=== PATIENT | female | born 1940 | race Caucasian/White ===

== ENCOUNTER 2018-06-13 13:53 | Outpatient (REF) | payer OTHER, SELFPAY ==
[2018-06-13 15:22] LABS: Anion Gap 8.2 mmol/L (3-11); BUN 21 mg/dL (7-18); CO2 26.8 mmol/L (21.0-32.0); Calcium 8.8 mg/dL (8.5-10.1); Chloride 100 mmol/L (98-107); Estimated GFR 53.62 (mL/min/1.73m2); Glucose 139 mg/dL (70-100); Potassium 4.6 mmol/L (3.5-5.1); Sodium 135 mmol/L (136-145)
== END 2018-06-13 14:13 ==
LOC: NCHCN 13:53
PROVIDERS: Visit Provider Nurse Practitioner Family
DX: I10 Essential (primary) hypertension (principal)
CPT/HCPCS: 80048

== ENCOUNTER → 2018-09-11 11:21 | Outpatient (BNVA) | payer OTHER, SELFPAY | PROVIDERS: Visit Provider Internal Medicine Cardiovascular Disease | DX: I48.0 Paroxysmal atrial fibrillation (principal); Z79.01 Long term (current) use of anticoagulants; I08.3 Combined rheumatic disorders of mitral, aortic and tricuspid valves; I10 Essential (primary) hypertension; E78.5 Hyperlipidemia, unspecified; G47.30 Sleep apnea, unspecified; Z99.89 Dependence on other enabling machines and devices; I27.20 Pulmonary hypertension, unspecified; E11.9 Type 2 diabetes mellitus without complications; Z79.84 Long term (current) use of oral hypoglycemic drugs | CPT/HCPCS: 99214 ==

== ENCOUNTER → 2018-10-23 11:50 | Outpatient (BNVA) | payer OTHER, SELFPAY | PROVIDERS: Visit Provider Internal Medicine Cardiovascular Disease | DX: I48.0 Paroxysmal atrial fibrillation (principal); Z79.01 Long term (current) use of anticoagulants; I08.3 Combined rheumatic disorders of mitral, aortic and tricuspid valves; I27.20 Pulmonary hypertension, unspecified; I12.9 Hypertensive chronic kidney disease with stage 1 through stage 4 chronic kidney disease, or unspecified chronic kidney disease; E78.5 Hyperlipidemia, unspecified; G47.30 Sleep apnea, unspecified; N18.9 Chronic kidney disease, unspecified; E11.22 Type 2 diabetes mellitus with diabetic chronic kidney disease | CPT/HCPCS: 99214 ==

== ENCOUNTER 2018-10-27 12:01 | Outpatient (REF) | payer OTHER, SELFPAY ==
[2018-10-27 21:59] LABS: Abs Immature Grans 0.01 k/cumm (0.0-0.09); Absolute Basophil Count 0.01 k/cumm (0.0-0.2); Absolute Eosinophil Count 0.17 k/cumm (0.0-0.7); Absolute Lymphocyte Count 1.31 k/cumm (1.2-3.4); Absolute Monocyte Count 0.44 k/cumm (0.11-0.7); Absolute Neutrophil Count 4.66 k/cumm (1.2-6.7); Basophils % 0.2; Eosinophils % 2.6; HCT 37.7 % (36.0-46.0); HGB 12.6 g/dL (12.0-15.5); Immature Grans % 0.2; Lymphocytes % 19.8; Mean Corp. HGB Concentration 33.4 g/dL (32.0-36.0); Mean Corpuscular Hemoglobin 29.7 pg (27.0-33.0); Mean Corpuscular Volume 88.9 fL (80-95); Mean Platelet Volume 9.3 fL (8.0-11.0); Monocytes % 6.7; Neutrophils % 70.5; Platelet Count 264 x1000/uL (130-400); RBC 4.24 m/cumm (4.00-5.20); RBC Distribution Width 13.7 % (11.7-14.6)
[2018-10-27 22:01] LABS: Iron 70 ug/dL (50-175)
[2018-10-27 22:25] LABS: ALT 26 U/L (12-78); AST 19 U/L (15-37); Albumin 3.8 g/dL (3.4-5.0); Alkaline Phosphatase 108 U/L (46-116); Anion Gap 9.8 mmol/L (3-11); BUN 22 mg/dL (7-18); Bilirubin, Total 0.4 mg/dL (0.2-1.0); CO2 27.2 mmol/L (21.0-32.0); CREATININE 1.18 mg/dL (0.55-1.02); Calcium 9.1 mg/dL (8.5-10.1); Chloride 104 mmol/L (98-107); Glucose 142 mg/dL (70-100); Magnesium 1.7 mg/dL (1.8-2.4); Potassium 4.3 mmol/L (3.5-5.1); Sodium 141 mmol/L (136-145); Total Protein 6.7 g/dL (6.4-8.2)
== END 2018-10-27 12:21 ==
LOC: NCHCN 12:01
PROVIDERS: PCP Nurse Practitioner Family; Visit Provider Nurse Practitioner Family
DX: R53.83 Other fatigue (principal); G60.9 Hereditary and idiopathic neuropathy, unspecified; I27.20 Pulmonary hypertension, unspecified; I48.91 Unspecified atrial fibrillation; E83.42 Hypomagnesemia; E87.1 Hypo-osmolality and hyponatremia; R06.00 Dyspnea, unspecified; E11.9 Type 2 diabetes mellitus without complications
CPT/HCPCS: 80053; 83540; 83735; 84443; 85025

== ENCOUNTER 2018-11-10 00:32 | Outpatient (CLI) | payer OTHER, SELFPAY ==
--- NOTE | 2018-11-10 14:20 | DI.MAMMO_ITS ---
SYMPTOMS/DIAGNOSIS: SCREENING, Z12.31 MAMMOGRAM: Mammograms were interpreted according to the usual protocol including computer analysis with CAD system, tomosynthesis and C view imaging. Comparison is made with exams from 2013 through 2017. The breasts are composed of heterogeneously dense fibroglandular tissue, breast density Category C. Scattered benign calcifications are again noted in both breasts. No suspicious masses or suspicious microcalcifications are seen. There has been no significant change. IMPRESSION: Category 2 C, negative mammogram with benign findings. Yearly screening mammography is recommended. SA ASSESSMENT OF FINDINGS: Negative with benign findings. Category 2. Patient will receive a letter notifying them of these results. Bi-RADS category C. The breasts are heterogeneously dense, which may obscure small masses.
== END 2018-11-10 00:52 ==
PROVIDERS: PCP Nurse Practitioner Family; Visit Provider Nurse Practitioner Family
DX: Z12.31 Encounter for screening mammogram for malignant neoplasm of breast (principal)
CPT/HCPCS: 77063; 77067

== ENCOUNTER → 2019-01-02 11:42 | Outpatient (BNVA) | payer OTHER, SELFPAY | PROVIDERS: PCP Nurse Practitioner Family; Visit Provider Internal Medicine Cardiovascular Disease | DX: I48.0 Paroxysmal atrial fibrillation (principal); I12.9 Hypertensive chronic kidney disease with stage 1 through stage 4 chronic kidney disease, or unspecified chronic kidney disease; I35.1 Nonrheumatic aortic (valve) insufficiency; Z79.01 Long term (current) use of anticoagulants; E11.22 Type 2 diabetes mellitus with diabetic chronic kidney disease; N18.9 Chronic kidney disease, unspecified | CPT/HCPCS: 99214 ==

== ENCOUNTER 2019-01-02 11:55 | Outpatient (CLI) | payer OTHER, SELFPAY | END 2019-01-02 12:15 | PROVIDERS: PCP Nurse Practitioner Family; Visit Provider Internal Medicine Cardiovascular Disease | DX: I48.0 Paroxysmal atrial fibrillation (principal); I10 Essential (primary) hypertension | CPT/HCPCS: 93005; 93010 ==

== ENCOUNTER 2019-02-10 11:38 | Outpatient (CLI) | payer OTHER, SELFPAY ==
--- NOTE | 2019-02-10 11:33 | DI.RAD_ITS ---
SYMPTOM/DIAGNOSIS: LT SHOULDER PAIN LEFT SHOULDER: Three views. There are no priors for comparison. Mild hypertrophic changes are seen at the acromioclavicular joint. The glenohumeral joint appears well maintained. The bones are intact and normally mineralized. The soft tissues are unremarkable. IMPRESSION: Mild degenerative changes of the left shoulder.
== END 2019-02-10 11:58 ==
PROVIDERS: PCP Nurse Practitioner Family; Referring Provider Nurse Practitioner Family; Visit Provider Orthopaedic Surgery
DX: M25.512 Pain in left shoulder (principal); M19.012 Primary osteoarthritis, left shoulder; M25.511 Pain in right shoulder; I48.91 Unspecified atrial fibrillation; Z79.01 Long term (current) use of anticoagulants
CPT/HCPCS: 20610; 99212; 73030; J1040

== ENCOUNTER 2019-02-23 01:56 | Outpatient (CLI) | payer OTHER, SELFPAY ==
--- NOTE | 2019-02-23 11:37 | DI.MRI_ITS ---
SYMPTOM/DIAGNOSIS: RT ROTATOR CUFF TEAR RIGHT SHOULDER MRI: Comparison is made with plain films dated 10/07/17. Proton density and fat suppressed T 2 axial and coronal T 1 and fat suppressed T 2 sagittal sequences were performed. The exam is limited by patient motion. There is some spurring at the inferior aspect of the acromion. There is fluid in the subacromial subdeltoid bursa as well as glenohumeral joint and subcoracoid bursa. There is a full thickness tear with retraction of the supraspinatus tendon. The infraspinatus tendon appears grossly intact. There is mild muscular atrophy. The subscapularus tendon appears intact. The biceps tendon is not well seen. There are no gross labral tears. IMPRESSION: Limited exam due to patient motion. There is a full thickness tear of the supraspinatus tendon with some retraction.
== END 2019-02-23 02:16 ==
PROVIDERS: PCP Nurse Practitioner Family; Visit Provider Orthopaedic Surgery
DX: M75.101 Unspecified rotator cuff tear or rupture of right shoulder, not specified as traumatic (principal)
CPT/HCPCS: 73221

== ENCOUNTER → 2019-03-03 10:36 | Outpatient (BNVA) | payer OTHER, SELFPAY | PROVIDERS: PCP Nurse Practitioner Family; Referring Provider Nurse Practitioner Family; Visit Provider Orthopaedic Surgery | DX: M75.101 Unspecified rotator cuff tear or rupture of right shoulder, not specified as traumatic (principal); M75.82 Other shoulder lesions, left shoulder | CPT/HCPCS: 20610; 99212; 99213; J1040 ==

== ENCOUNTER → 2019-04-15 09:48 | Outpatient (BNVA) | payer OTHER, SELFPAY | PROVIDERS: PCP Nurse Practitioner Family; Referring Provider Nurse Practitioner Family; Visit Provider Orthopaedic Surgery | DX: Z98.890 Other specified postprocedural states (principal); M25.511 Pain in right shoulder; M25.512 Pain in left shoulder; M25.551 Pain in right hip; M25.552 Pain in left hip; M25.561 Pain in right knee; M25.562 Pain in left knee | CPT/HCPCS: 99213 ==

== ENCOUNTER 2019-04-15 10:35 | Outpatient (CLI) | payer OTHER, SELFPAY ==
[2019-04-15 11:17] LABS: Abs Immature Grans 0.02 k/cumm (0.0-0.09); Absolute Basophil Count 0.02 k/cumm (0.0-0.2); Absolute Eosinophil Count 0.17 k/cumm (0.0-0.7); Absolute Lymphocyte Count 1.26 k/cumm (1.2-3.4); Absolute Monocyte Count 0.52 k/cumm (0.11-0.7); Absolute Neutrophil Count 6.66 k/cumm (1.2-6.7); Basophils % 0.2; HCT 32.7 % (36.0-46.0); HGB 10.6 g/dL (12.0-15.5); Immature Grans % 0.2; Lymphocytes % 14.6; Mean Corp. HGB Concentration 32.4 g/dL (32.0-36.0); Mean Corpuscular Hemoglobin 27.7 pg (27.0-33.0); Mean Corpuscular Volume 85.6 fL (80-95); Platelet Count 350 x1000/uL (130-400); RBC 3.82 m/cumm (4.00-5.20); White Blood Cell Count 8.65 k/cumm (4.4-10.8)
[2019-04-15 11:51] LABS: Uric Acid 4.9 mg/dL (2.6-6.0)
[2019-04-15 11:53] LABS: ESR 60 MM/HR (0-30)
[2019-04-16 08:56] LABS: Rheumatoid Factor 20 IU/mL (<12.5)
[2019-04-16 14:04] LABS: ANA Interpretation Positive (NEGAT); ANA Titer Pattern 1:160 Speckled
== END 2019-04-15 10:55 ==
PROVIDERS: PCP Nurse Practitioner Family; Visit Provider Orthopaedic Surgery
DX: M25.50 Pain in unspecified joint (principal)
CPT/HCPCS: 36415; 85652; 84550; 85025; 86038; 86431

== ENCOUNTER → 2019-04-21 08:38 | Outpatient (BNVA) | payer OTHER, SELFPAY | PROVIDERS: PCP Nurse Practitioner Family; Visit Provider Orthopaedic Surgery | DX: M25.50 Pain in unspecified joint (principal); M35.9 Systemic involvement of connective tissue, unspecified; D64.9 Anemia, unspecified | CPT/HCPCS: 99213 ==

== ENCOUNTER 2019-04-27 15:48 | Outpatient (REF) | payer OTHER, SELFPAY ==
[2019-04-27 21:57] LABS: Abs Immature Grans 0.02 k/cumm (0.0-0.09); Absolute Basophil Count 0.02 k/cumm (0.0-0.2); Absolute Eosinophil Count 0.08 k/cumm (0.0-0.7); Absolute Lymphocyte Count 1.13 k/cumm (1.2-3.4); Basophils % 0.2; Eosinophils % 0.9; HCT 34.8 % (36.0-46.0); HGB 11.2 g/dL (12.0-15.5); Immature Grans % 0.2; Lymphocytes % 12.1; Mean Corp. HGB Concentration 32.2 g/dL (32.0-36.0); Mean Corpuscular Hemoglobin 27.8 pg (27.0-33.0); Mean Corpuscular Volume 86.4 fL (80-95); Mean Platelet Volume 9.3 fL (8.0-11.0); Monocytes % 4.3; Neutrophils % 82.3; Platelet Count 363 x1000/uL (130-400); RBC 4.03 m/cumm (4.00-5.20); RBC Distribution Width 14.3 % (11.7-14.6); White Blood Cell Count 9.35 k/cumm (4.4-10.8)
[2019-04-27 22:32] LABS: Iron 36 ug/dL (50-175); Total Iron Binding Capacity 338 ug/dL (250-450); Transferrin Sat 11 % (15-50)
[2019-04-27 22:34] LABS: ALT 30 U/L (12-78); AST 18 U/L (15-37); Albumin 3.9 g/dL (3.4-5.0); Alkaline Phosphatase 89 U/L (46-116); Anion Gap 13.1 mmol/L (3-11); BUN 21 mg/dL (7-18); Bilirubin, Total 0.3 mg/dL (0.2-1.0); CO2 25.9 mmol/L (21.0-32.0); CREATININE 0.86 mg/dL (0.55-1.02); Chloride 98 mmol/L (98-107); Ferritin 66 ng/mL (8-388); Glucose 114 mg/dL (70-100); Magnesium 1.7 mg/dL (1.8-2.4); Potassium 4.1 mmol/L (3.5-5.1); Sodium 137 mmol/L (136-145); TSH (W/Ref FT4) 1.74 uIU/mL (0.36-3.74); Total Protein 6.9 g/dL (6.4-8.2); Vitamin B12 575 pg/mL (193-986)
[2019-04-29 10:27] LABS: Cyclic Citrullinated Peptide <2.5 U/mL (<5.0)
[2019-04-30 11:35] LABS: dsDNA Ab, IgG <12.3 IU/mL (<30)
[2019-04-30 12:13] LABS: RNP Ab, IgG 2.8 Units (<20); SS-B (La) Ab, IgG 1.3 Units (<20); Sm (Smith) Ab, IgG 2.1 Units (<20)
== END 2019-04-27 16:08 ==
LOC: NCHCN 15:48
PROVIDERS: PCP Nurse Practitioner Family; Visit Provider Nurse Practitioner Family
DX: M25.50 Pain in unspecified joint (principal); R76.0 Raised antibody titer; R53.83 Other fatigue; G60.9 Hereditary and idiopathic neuropathy, unspecified; I27.20 Pulmonary hypertension, unspecified; I48.91 Unspecified atrial fibrillation; J98.4 Other disorders of lung; E83.42 Hypomagnesemia
CPT/HCPCS: 80053; 86200; 82607; 82728; 83540; 83550; 83735; 84443; 85025; 86225; 86235

== ENCOUNTER 2019-05-15 03:59 | Outpatient (CLI) | payer OTHER, SELFPAY ==
[2019-05-15] MEDS: Inhaler, Assist Device 1 EACH MC (08:40)
[2019-05-15] MEDS: Albuterol HFA 18 GM 200 PUFF INH IH (08:41)
--- NOTE | 2019-05-18 12:13 | PFT_ITS ---
PULMONARY FUNCTION TEST REPORT DATE OF SERVICE: May 15, 2019 REQUESTING PROVIDER: Rod Hannon M.D. Spirometry shows no evidence of obstructive airways disease, no bronchodilator response. Lung volumes show mild restriction. Diffusion capacity mildly reduced. Airways resistance normal. IMPRESSION: Mild restrictive lung disease associated with mild diffusion defect. Clinical correlation recommended. When this study was compared to previous ones from 12/05/09 and 09/11/17, the patient has a stable FVC and stable FEV1. Diffusion capacity has slightly improved. ESE/susie D/
== END 2019-05-15 04:19 ==
PROVIDERS: PCP Nurse Practitioner Family; Visit Provider Internal Medicine Pulmonary Disease
DX: Z12.11 Encounter for screening for malignant neoplasm of colon (principal); Z86.010 Personal history of colon polyps; Z85.038 Personal history of other malignant neoplasm of large intestine; Z79.01 Long term (current) use of anticoagulants; I10 Essential (primary) hypertension; E11.9 Type 2 diabetes mellitus without complications; R06.02 Shortness of breath; J98.4 Other disorders of lung
CPT/HCPCS: 94060; 94150; 94726; 94729

== ENCOUNTER 2019-06-04 09:37 | Outpatient (REF) | payer OTHER, SELFPAY ==
[2019-06-04 14:01] LABS: HCT 33.8 % (36.0-46.0); HGB 10.9 g/dL (12.0-15.5); Mean Corp. HGB Concentration 32.2 g/dL (32.0-36.0); Mean Corpuscular Hemoglobin 28.3 pg (27.0-33.0); Mean Corpuscular Volume 87.8 fL (80-95); Mean Platelet Volume 9.1 fL (8.0-11.0); Platelet Count 328 x1000/uL (130-400); RBC 3.85 m/cumm (4.00-5.20); RBC Distribution Width 15.1 % (11.7-14.6); White Blood Cell Count 9.14 k/cumm (4.4-10.8)
[2019-06-04 14:15] LABS: Magnesium 1.8 mg/dL (1.8-2.4)
[2019-06-04 14:17] LABS: Iron 58 ug/dL (50-175)
== END 2019-06-04 09:57 ==
LOC: NCHCN 09:37
PROVIDERS: PCP Nurse Practitioner Family; Visit Provider Nurse Practitioner Family
DX: D50.9 Iron deficiency anemia, unspecified (principal); E83.42 Hypomagnesemia
CPT/HCPCS: 85027; 83540; 83735

== ENCOUNTER 2019-06-26 09:09 | Outpatient (CLI) | payer OTHER, SELFPAY | END 2019-06-26 09:29 | PROVIDERS: PCP Nurse Practitioner Family; Visit Provider Internal Medicine Cardiovascular Disease | DX: I48.91 Unspecified atrial fibrillation (principal); I10 Essential (primary) hypertension; I35.1 Nonrheumatic aortic (valve) insufficiency; E11.9 Type 2 diabetes mellitus without complications | CPT/HCPCS: 99214; 93005; 93010 ==

== ENCOUNTER 2019-07-28 10:34 | Outpatient (REF) | payer OTHER, SELFPAY ==
[2019-07-28 12:58] LABS: Abs Immature Grans 0.03 k/cumm (0.0-0.09); Absolute Basophil Count 0.02 k/cumm (0.0-0.2); Absolute Eosinophil Count 0.08 k/cumm (0.0-0.7); Absolute Lymphocyte Count 1.18 k/cumm (1.2-3.4); Absolute Monocyte Count 0.55 k/cumm (0.11-0.7); Absolute Neutrophil Count 6.92 k/cumm (1.2-6.7); Basophils % 0.2; Eosinophils % 0.9; HGB 11.4 g/dL (12.0-15.5); Immature Grans % 0.3; Lymphocytes % 13.4; Mean Corp. HGB Concentration 32.6 g/dL (32.0-36.0); Mean Corpuscular Hemoglobin 28.1 pg (27.0-33.0); Mean Corpuscular Volume 86.2 fL (80-95); Mean Platelet Volume 8.9 fL (8.0-11.0); Monocytes % 6.3; Neutrophils % 78.9; Platelet Count 311 x1000/uL (130-400); RBC 4.06 m/cumm (4.00-5.20); RBC Distribution Width 15.2 % (11.7-14.6); White Blood Cell Count 8.78 k/cumm (4.4-10.8)
[2019-07-28 13:30] LABS: Anion Gap 13.4 mmol/L (3-11); BUN 29 mg/dL (7-18); CO2 26.6 mmol/L (21.0-32.0); CREATININE 1.37 mg/dL (0.55-1.02); Calcium 9.2 mg/dL (8.5-10.1); Chloride 101 mmol/L (98-107); Estimated GFR 37.19 (mL/min/1.73m2); Glucose 164 mg/dL (70-100); Magnesium 1.8 mg/dL (1.8-2.4); Potassium 3.6 mmol/L (3.5-5.1); Sodium 141 mmol/L (136-145)
[2019-07-28 14:23] LABS: Iron 59 ug/dL (50-175)
== END 2019-07-28 10:54 ==
LOC: NCHCN 10:34
PROVIDERS: PCP Nurse Practitioner Family; Visit Provider Nurse Practitioner Family
DX: E83.42 Hypomagnesemia (principal); D50.9 Iron deficiency anemia, unspecified; E11.9 Type 2 diabetes mellitus without complications; M35.3 Polymyalgia rheumatica; R53.83 Other fatigue; I27.20 Pulmonary hypertension, unspecified; I48.91 Unspecified atrial fibrillation; E78.5 Hyperlipidemia, unspecified
CPT/HCPCS: 80048; 83540; 83735; 85025

== ENCOUNTER → 2019-09-11 11:00 | Outpatient (BNVA) | payer OTHER, SELFPAY | PROVIDERS: PCP Nurse Practitioner Family; Referring Provider Nurse Practitioner Family; Visit Provider Physical Therapy Assistant | DX: Z12.11 Encounter for screening for malignant neoplasm of colon (principal); Z85.038 Personal history of other malignant neoplasm of large intestine; E11.9 Type 2 diabetes mellitus without complications; Z90.49 Acquired absence of other specified parts of digestive tract; I10 Essential (primary) hypertension ==

== ENCOUNTER 2019-09-24 13:48 | Observation (INO) | payer OTHER, SELFPAY ==
[2019-09-24] VITALS (10 sets, daily range): BP systolic 124–140; BP diastolic 49–72; PULSE 67–86; RESP 18–23; TEMP 36.4–36.8; O2SAT 91–99
[2019-09-24] MEDS: Lactated Ringers 1,000 ML 80 ML IV ×2 (10:00→13:17)
--- NOTE | 2019-09-24 11:24 | BOWEL_PTH ---
PATIENT: Alysha Kay LOC: U#:[id number] AGE/SX: 79/F ROOM: RE09/24/[address]: Anabel Doty : 1940 BED: A DIS: 09/25/2019 SPEC #: [id number] RECD: 09/24/19 17:18 STATUS: KANNAN REQ #: [id number] QAMAR: 09/24/19 11:[address]: Anabel Doty DEPT: Surgical Specimen RECD BY: Marli Yusuf ENTERED: 09/24/19 17:19 SP TYPE: Bowel OTHR DR: Tere Sheffield Tissues: 1 - BIOPSY BOWEL 2 - BIOPSY BOWEL 3 - BIOPSY BOWEL 4 - BIOPSY BOWEL Procedures: GROSS AND MICRO LEVEL 4 Comments: [id number]
[2019-09-24] MEDS: Normal Saline Flush 10 ML SYR (13:00)
[2019-09-24] MEDS: Endoscopic Tattoo 5 ML SYR IJ (13:00)
--- NOTE | 2019-09-24 14:00 | W.COLOREPORT ---
Date of service: 09/24/19 Time of Service: 14:00 Colonoscopy Report Date of procedure: 09/24/19 Pre-op diagnosis general: perseonel hx of CRC 20 yrs ago. s/p sigmoid resection Post-op diagnosis procedure note: other Procedure: ce and polypectomy x7. x3 lg polyps at 70cm primarily. this are is tatooed as well Surgeon: Anabel Doty Anesthesia proc note operative: GETA Estimated blood loss (mL): 5 Pathology: other Complications: None Disposition: floor Prep: Miralax/Dulcolax Retraction Time: 1 hour Procedure Description: see dictation
[2019-09-24] MEDS: Enoxaparin 40 MG/0.4 ML SYR SC (15:52)
[2019-09-24] MEDS: Lactated Ringers 1,000 ML 125 ML IV (16:07)
[2019-09-24] MEDS: Simethicone 80 MG CHEW 160 MG PO ×2 (17:26→21:26)
[2019-09-24] MEDS: cefTRIAXone 1 GM/50 ML BAG IVPB (19:47)
[2019-09-24] MEDS: Normal Saline Flush 10 ML SYR IV (19:47)
[2019-09-24] MEDS: metroNIDAZOLE 500 MG/100 ML BAG 100 MG IVPB (19:48)
[2019-09-24] MEDS: Magnesium Chloride 64 MG TABCR PO (19:48)
[2019-09-24] MEDS: rOPINIRole 1 MG TAB 2 MG PO (19:48)
--- NOTE | 2019-09-24 19:51 | W.PM.PROGNOT ---
Date of Service Date of service: 09/24/19 Time of Service: 19:51 Assessment and Plan Assessment and plan (1) Adenomatous polyp of ascending colon: Status: Acute Assessment and plan: s/p mult polypectomy will admit for IV abx and observation. -hold eliquis for 2 wks (2) Colon cancer: Status: Chronic Subjective Subjective Interval history since last seen: pt underwent routine surveillance CE today. She has a hx of advanced CRC, she had a colectomy and adjuvant chemo roughly 20 yrs ago. She has had no recurrence. Her last CE was nl per pt. She has been asymp- no change s in bowels, no bleeding, pain or difficulty having a BM. no wt loss. no pain. Today she had multiple polyps, including x3 adenomatous that were over 1cm. x2 were at 70cm. One was flat and wasremoved peicemeal. The other . was removed w/ a snare. This one was deep and the defect was closed w/ clips. The area was tatooed as well. She also had another 1cm polyp at 40cm. B/c of the number and size of the polyps, I am going to keep her in the hospital overnight and on abx- to avoid post polypectomy syndrome. We will also need to keep her off the elliquis/asa/nsaids for 2 wks I did d/w this w/ her and pt in PACU. She is having minimal gas pains- sushil in LLQ. she is tolerating cl liq w/ no N/V. She is passing gas. Her VS are stable. Exam Const General: cooperative, healthy appearing, comfortable, no acute distress, well developed and well groomed Nutritional Appearance: average body habitus and well nourished Orientation: alert, awake and oriented x3 [facility] Head: normal to inspection, normocephalic and atraumatic Ears: hearing grossly normal bilaterally and external ears normal General nose exam: external nose normal Face and sinus: normal facial exam and sinuses nontender Mouth: oral mucosae normal, lip normal, tongue normal and moist mucous membranes Teeth and gingiva: dentition normal Eyes General: appearance normal, both eyes and all related structures Conjunctivae: conjunctivae normal Sclera: sclerae normal Pupils: PERRL Neck Neck: normal visual inspection and full ROM Chest Chest: normal inspection of the chest Resp Effort & Inspection: normal respiratory effort, able to speak in complete sentences, no cough, no nasal flaring, not tachypneic and no use of accessory muscles Auscultation: clear to auscultation bilaterally, no rales, no rhonchi and no wheezes Cardio Jugular venous pressure: no JVD Rate: regular rate Rhythm: regular rhythm GI Inspection: normal to inspection, no edema, non-distended and scar Palpation: soft, no masses, nontender and No ascites Auscultation: normal bowel sounds Other: soft and non tender. Skin General skin exam: no rashes or lesions noted Trauma: no lacerations or abrasions Neuro General: alert, oriented x3, oriented, gait normal, moves all extremities, no focal motor deficits and CN's II-XI intact bilaterally Cognition: normal cognition Speech: speech normal Gait: normal gait Motor: muscle tone normal throughout Extrem General: normal to inspection, full ROM and no clubbing, cyanosis or edema Psych Appearance: grossly normal and well kempt Mental Status: mental status grossly normal Speech and Movement: speech and movement normal Affect: normal affect Objective Objective Clinical Data: Vital Signs Temperature 36.8 C 09/24/19 16:39 Temperature Source Tympanic 09/24/19 16:39 Pulse 82 09/24/19 16:39 Pulse Rhythm Regular 09/24/19 19:40 Respiratory Rate 18 09/24/19 16:39 Respiratory Effort Non-Labored 09/24/19 19:40 Respiratory Depth Normal 09/24/19 19:40 Respiratory Pattern Normal 09/24/19 19:40 Blood Pressure 134/68 09/24/19 16:39 Pulse Oximetry 95 09/24/19 16:39 Respiratory End-tidal CO2 33 09/24/19 14:35 Oxygen Delivery Method Room Air 09/24/19 16:39 Oxygen Flow Rate 0 09/24/19 16:39 Fraction of Inspired Oxygen (FIO2) 21 09/24/19 16:30 Pain Level 2 09/24/19 15:29 Intake & Output 09/23/19 09/24/19 09/24/19 23:59 11:59 23:59 Intake Total 1894.583 / 1894.583 Balance 1894.583 / 1894.583 Weight 80.3 kg 80.3 kg Intake: IV 1464.583 / 1464.583 Oral 430 / 430 Other: Urine Appearance Clear Emesis Description None
[2019-09-25] MEDS: metroNIDAZOLE 500 MG/100 ML BAG 100 MG IVPB ×3 (01:59→14:17)
[2019-09-25] MEDS: Lactated Ringers 1,000 ML 125 ML IV (02:00)
[2019-09-25] MEDS: Normal Saline Flush 10 ML SYR IVP ×3 (02:00→09:41)
[2019-09-25 04:35] VITALS: BP 115/64; PULSE 83; RESP 18; TEMP 37.5; O2SAT 96
[2019-09-25 07:14] LABS: Abs Immature Grans 0.02 k/cumm (0.0-0.09); Absolute Basophil Count 0.01 k/cumm (0.0-0.2); Absolute Eosinophil Count 0.08 k/cumm (0.0-0.7); Absolute Monocyte Count 0.56 k/cumm (0.11-0.7); Absolute Neutrophil Count 8.65 k/cumm (1.2-6.7); Basophils % 0.1; Eosinophils % 0.8; HGB 10.2 g/dL (12.0-15.5); Immature Grans % 0.2; Lymphocytes % 9.7; Mean Corp. HGB Concentration 32.9 g/dL (32.0-36.0); Mean Corpuscular Hemoglobin 28.6 pg (27.0-33.0); Mean Corpuscular Volume 86.8 fL (80-95); Mean Platelet Volume 8.7 fL (8.0-11.0); Monocytes % 5.4; Neutrophils % 83.8; Platelet Count 276 x1000/uL (130-400); RBC 3.57 m/cumm (4.00-5.20); RBC Distribution Width 14.4 % (11.7-14.6); White Blood Cell Count 10.32 k/cumm (4.4-10.8)
[2019-09-25 07:15] VITALS: BP 121/66; PULSE 79; RESP 18; TEMP 36.6; O2SAT 90
[2019-09-25 07:18] LABS: Anion Gap 11.2 mmol/L (3-11); BUN 10 mg/dL (7-18); CO2 26.8 mmol/L (21.0-32.0); CREATININE 1.05 mg/dL (0.55-1.02); Chloride 104 mmol/L (98-107); Estimated GFR 50.56 (mL/min/1.73m2); Glucose 149 mg/dL (74-106); Magnesium 1.4 mg/dL (1.8-2.4); Sodium 142 mmol/L (136-145)
[2019-09-25 07:26] LABS: Potassium 2.8 mmol/L (3.5-5.1)
--- NOTE | 2019-09-25 08:38 | W.PM.PROGNOT ---
Date of Service Date of service: 09/25/19 Time of Service: 08:38 Assessment and Plan Assessment and plan (1) Adenomatous polyp of ascending colon: Status: Acute Assessment and plan: adavance to soft diet will check iron level. she is weaning off prednisone. She has been on for some time- which puts her at higher risk for perforation. no signs of perf or bleeding (2) Polymyalgia rheumatica: Status: Acute Subjective Subjective Interval history since last seen: Pt is doing well. no headaches. No CP or SOB. no productive cough. no dysuria. no leg pain or swelling. no N/V. no temps. no bleeding. She has been up walking. She is tolerating cl liq's and is hungry. We will advance diet and see how she tolerates. She was told she was anemic and started on Fe. Will check Fe today She has been having problems w/ low k and Mg. these were replaced today Exam Const General: cooperative, healthy appearing, comfortable, no acute distress, well developed and well groomed Nutritional Appearance: average body habitus and well nourished Orientation: alert, awake and oriented x3 [facility] Head: normal to inspection, normocephalic and atraumatic Ears: hearing grossly normal bilaterally and external ears normal General nose exam: external nose normal Face and sinus: normal facial exam and sinuses nontender Mouth: oral mucosae normal, lip normal, tongue normal and moist mucous membranes Teeth and gingiva: dentition normal Eyes General: appearance normal, both eyes and all related structures Conjunctivae: conjunctivae normal Sclera: sclerae normal Pupils: PERRL Neck Neck: normal visual inspection and full ROM Chest Chest: normal inspection of the chest Resp Effort & Inspection: normal respiratory effort, able to speak in complete sentences, no cough, no nasal flaring, not tachypneic and no use of accessory muscles Auscultation: clear to auscultation bilaterally, no rales, no rhonchi and no wheezes Cardio Jugular venous pressure: no JVD Rate: regular rate Rhythm: regular rhythm GI Inspection: normal to inspection, no edema and non-distended Palpation: soft, no masses, nontender and No ascites Auscultation: normal bowel sounds Other: minimally tender good BS. no peritonitis. no bleeding Skin General skin exam: no rashes or lesions noted Trauma: no lacerations or abrasions Neuro General: alert, oriented x3, oriented, gait normal, moves all extremities, no focal motor deficits and CN's II-XI intact bilaterally Cognition: normal cognition Speech: speech normal Gait: normal gait Motor: muscle tone normal throughout Extrem General: normal to inspection, full ROM and no clubbing, cyanosis or edema Psych Appearance: grossly normal and well kempt Mental Status: mental status grossly normal Speech and Movement: speech and movement normal Affect: normal affect Objective Objective Clinical Data: Abnormal lab results 09/25/19 09/25/19 Range/Units 06:20 06:20 RBC 3.57 L (4.00-5.20) m/cumm Hgb 10.2 L (12.0-15.5) g/dL Hct 31.0 L (36.0-46.0) % Absolute Neutrophils 8.65 H (1.2-6.7) k/cumm Absolute Lymphocytes 1.00 L (1.2-3.4) k/cumm Potassium 2.8 L* (3.5-5.1) mmol/L Anion Gap 11.2 H (3-11) mmol/L Creatinine 1.05 H (0.55-1.02) mg/dL Glucose 149 H (74-106) mg/dL Calcium 8.0 L (8.5-10.1) mg/dL Magnesium 1.4 L (1.8-2.4) mg/dL Vital Signs Temperature 37.5 C 09/25/19 04:35 Temperature Source Temporal Artery Scan 09/25/19 04:35 Pulse 83 09/25/19 04:35 Pulse Rhythm Regular 09/25/19 02:50 Respiratory Rate 18 09/25/19 04:35 Respiratory Effort Non-Labored 09/25/19 02:50 Respiratory Depth Normal 09/25/19 02:50 Respiratory Pattern Normal 09/25/19 02:50 Blood Pressure 115/64 09/25/19 04:35 Pulse Oximetry 96 09/25/19 04:35 Respiratory End-tidal CO2 33 09/24/19 14:35 Oxygen Delivery Method Cpap 09/25/19 04:35 Oxygen Flow Rate 0 09/24/19 16:39 Fraction of Inspired Oxygen (FIO2) 21 09/25/19 00:51 Pain Level 2 09/24/19 15:29 Intake & Output 1209/24/19 09/25/19 11:59 23:59 11:59 Intake Total 2284.583 / 2284.583 464.583 / 464.583 Output Total 600 / 600 Balance 2284.583 / 2284.583 -135.417 / -135.417 Weight 80.3 kg 80.3 kg Intake: IV 1614.583 / 1614.583 464.583 / 464.583 Oral 670 / 670 Output: Urine 600 / 600 Other: Urine Color Pale Yellow Yellow Urine Appearance Clear Clear Urine Odor None Emesis Description None Voiding Methods Toilet Toilet Laboratory Results WBC 10.32 k/cumm (4.4-10.8) 09/25/19 06:20 RBC 3.57 m/cumm (4.00-5.20) L 09/25/19 06:20 Hgb 10.2 g/dL (12.0-15.5) L 09/25/19 06:20 Hct 31.0 % (36.0-46.0) L 09/25/19 06:20 MCV 86.8 fL (80-95) 09/25/19 06:20 MCH 28.6 pg (27.0-33.0) 09/25/19 06:20 MCHC 32.9 g/dL (32.0-36.0) 09/25/19 06:20 RDW 14.4 % (11.7-14.6) 09/25/19 06:20 Plt Count 276 x1000/uL (130-400) 09/25/19 06:20 MPV 8.7 fL (8.0-11.0) 09/25/19 06:20 Immature Gran % 0.2 09/25/19 06:20 Neutrophils % 83.8 09/25/19 06:20 Lymphocytes % 9.7 09/25/19 06:20 Monocytes % 5.4 09/25/19 06:20 Eosinophils % 0.8 09/25/19 06:20 Basophils % 0.1 09/25/19 06:20 Absolute Neutrophils 8.65 k/cumm (1.2-6.7) H 09/25/19 06:20 Absolute Lymphocytes 1.00 k/cumm (1.2-3.4) L 09/25/19 06:20 Absolute Monocytes 0.56 k/cumm (0.11-0.7) 09/25/19 06:20 Absolute Eosinophils 0.08 k/cumm (0.0-0.7) 09/25/19 06:20 Absolute Basophils 0.01 k/cumm (0.0-0.2) 09/25/19 06:20 Sodium 142 mmol/L (136-145) 09/25/19 06:20 Potassium 2.8 mmol/L (3.5-5.1) L* 09/25/19 06:20 Chloride 104 mmol/L (98-107) 09/25/19 06:20 Carbon Dioxide 26.8 mmol/L (21.0-32.0) 09/25/19 06:20 Anion Gap 11.2 mmol/L (3-11) H 09/25/19 06:20 BUN 10 mg/dL (7-18) 09/25/19 06:20 Creatinine 1.05 mg/dL (0.55-1.02) H 09/25/19 06:20 Estimated GFR/1.73 m2 50.56 (mL/min/1.73m2) 09/25/19 06:20 Glucose 149 mg/dL (74-106) H 09/25/19 06:20 Calcium 8.0 mg/dL (8.5-10.1) L 09/25/19 06:20 Magnesium 1.4 mg/dL (1.8-2.4) L 09/25/19 06:20
[2019-09-25] MEDS: amLODIPine 5 MG TAB 10 MG PO (08:55)
[2019-09-25] MEDS: FLUoxetine 20 MG CAP 40 MG PO (08:55)
[2019-09-25] MEDS: Pravastatin 40 MG TAB PO (08:55)
[2019-09-25] MEDS: Simethicone 80 MG CHEW 160 MG PO ×2 (08:55→12:45)
[2019-09-25] MEDS: rOPINIRole 1 MG TAB 2 MG PO (08:55)
[2019-09-25] MEDS: Magnesium Chloride 64 MG TABCR PO (08:55)
[2019-09-25] MEDS: rOPINIRole 0.5 MG TAB 0.75 MG PO (08:56)
[2019-09-25] MEDS: MAGNESIUM SULFATE 1 GM/100 ML BAG IVPB (10:00)
--- NOTE | 2019-09-25 10:07 | ROE_ITS ---
DATE OF PROCEDURE: September 24, 2019 PREOPERATIVE DIAGNOSIS: Colon cancer. POSTOPERATIVE DIAGNOSIS: Multiple polyps x 7. SURGEON: Anabel Doty D.O. ANESTHESIA: General. ESTIMABED BLOOD LOSS: 5 cc's CONDITION: The patient tolerated the procedure well without complication. HISTORY: Ms. Kay is a 79-year-old female who is here today for a routine colon cancer screening procedure. Her last colonoscopy was five years ago and was normal, per the patient. She does have a history of colon cancer and had a previous open sigmoid colectomy twenty years ago. She's had no problems with her bowels. She's noted no changes in her bowel habits. No unexplained weight loss. No pain or difficulty moving her bowels and no blood in her stools. Informed consent was obtained, explaining risks and benefits of the procedure, including but not limited to bleeding, infection, perforation, aspiration and complications from the anesthesia. PROCEDURE: The patient was brought to the endoscopy suite and placed in the left lateral decubitus position. IV sedation is administered per the Department of Anesthesia. A time-out was performed. Digital rectal exam is performed prior to the beginning of the procedure. There are a few anal tags from external hemorrhoids. A previously-lubricated Olympus scope is inserted in the rectum and insufflation is begun. The scope is passed up the rectosigmoid bowels at her prior sigmoid resection. The area is noted; the anastomosis is widely patent; no signs of recurrence of the cancer. The cecum is achieved at 80 cm and a good prep is noted. There is just some mild punctate erythema in the cecum; this is most-likely just from prepping. Biopsy is taken of the cecum. At 70 cm she has two large masses; both are flat-type polyps; they are definitely adenomas. The more pedunculated of the two is removed with two bites of a hot snare and specimen retrieved. The second mass we attempted to inject saline to raise it so we could snare it, but injection of the saline doesn't really produce any significant welling of the polyp. At this point the patient does have pretty significant restless legs, to the point that it creates a significant amount of motion artifact in the colon and makes the attempts at doing the procedure dangerous. So at this point the colonoscopy is abandoned and the patient is brought to the operative room suite and general anesthesia is administered per the Department of Anesthesia with rocuronium. The scope is then inserted back into the colon up to the cecum. There is no bleeding from the cecal biopsy. Again the mass at 70 cm is removed piecemeal with a hot forcept and fulgurated. There is no bleeding noted. This area is tattooed as well. She also has another mass at about 80 cm and this is removed with the hot snare as well and retrieved. Muscle fibers are visible. Two clips are placed across this to close the defect with good placement. There are no signs of any bleeding. She has a few smaller polyps, 2 or 3 at the 70-80 area, all three of these are removed with hot biopsy forceps. At 40 cm she has another polyp and this is removed with hot snare. Again the specimen is retrieved and no bleeding is noted. There are no signs of any diverticula. There are no signs of any AVM's. The mucosa is pink and healthy and there are no signs of any arteriole problems. There is no bleeding. All specimens are retrieved. The scope is then withdrawn. The patient tolerated the procedure well. She was woken up and taken to PACU. She has no abdominal pain. She did receive a dose of IV antibiotics and we will keep her in the hospital for 24 hours for observation and keep her on IV antibiotics to avoid post-polypectomy syndrome and monitor her for any signs of perforation, as so many polyps were taken out and they were so large. I did discuss this with the patient and her . The patient definitely does need to have a repeat colonoscopy in 1 years' time. I will see her back in the office and review the pathology results. If there are any signs of any dysplasia or villous, we will repeat the procedure in six months' time. 3 hrs was spent in endoscopy w/ the pt today. Thank you for allowing me to participate in the care of this patient. Two hours was spent with the patient today in endoscopy. cc: Tere Sheffield N.P.
[2019-09-25 10:29] LABS: Iron 22 ug/dL (50-170); Total Iron Binding Capacity 231 ug/dL (250-450); Transferrin Sat 10 % (15-50)
[2019-09-25] MEDS: POTASSIUM CHLORIDE 10 MEQ/100 ML BAG 100 MEQ IVPB ×4 (10:43→14:07)
[2019-09-25] MEDS: IRON SUCROSE COMPLEX 200 MG in Normal Saline 100 ML 400 MG IVPB (12:56)
--- NOTE | 2019-09-25 13:02 | W.PM.DS.N ---
DS: Diagnosis Discharge Diagnosis (1) Adenomatous polyp of ascending colon: Status: Acute (2) Colon cancer: Status: Chronic (3) Iron deficiency anemia due to chronic blood loss: Status: Acute Discharge Plan Disposition Patient Disposition: HOME Condition: Good Discharge Details Reason For Visit: MULT LG COLON POLYPS/HX OF COLON CANCER Admit Date/Time: 09/24/19 13:48 Admit Provider: Anabel Doty Attending Provider: Anabel Doty Primary Care Provider: Tere Sheffield [facility] Course Hospital Course: pt underwent an elcetive CE for routine F/u from her [facility] 20 yrs ago. She has anemic for the last 6m and has been on Fe replacement. She had x3 polyps that were adenomatatous and larger than 1cm. One of the polyps we had to clip the site. She was kept overnight on abx to watch for bleeding and perforation. Today she is feeling good. minimal pain and no bleeding or signs of perforation. Her Iron is low- most likely from chronic bleeding from the polyps- she was given 200mg IV Iron. She will be d/c'ed home on cipro and flagyl for 5 days and priobiotics for 30 days. She should stay off ASA/NSAID's and her Ellquis for 2 wks. Also no Vit E/fish oil/garlic, etc. Soft low fiber diet for 72 hrs She will f/u on saturday and see how she is feeling. If temps>100, severe abdominal pain,vomiting.passing lg clots- go to ED. Home Meds and New Rx's Prescriptions: New metronidazole [Flagyl] 500 mg tablet 500 mg PO TID 5 Days Qty: 15 RF: 0 ciprofloxacin HCl [Cipro] 500 mg tablet 500 mg PO BID 5 Days Qty: 10 RF: 0 Lactobacillus acidophilus Capsule 100 mg PO BID Qty: 60 RF: 0 Continued magnesium chloride 64 mg tablet,delayed release (DR/EC) 64 mg PO BID RF: 0 prednisone 5 mg tablet 6 mg PO DAILY RF: 0 ramelteon [Rozerem] 8 mg tablet 8 mg PO QHS RF: 0 albuterol sulfate [ProAir HFA] 90 mcg/actuation HFA aerosol inhaler 2 puff IH Q6H PRNRF: 0 modafinil 100 mg tablet 50 mg PO DAILY RF: 0 Bevespi Aerosphere 9-4.8 mcg HFA aerosol inhaler 2 puff IH BID RF: 0 metformin 500 MG tablet 500 mg PO DAILY RF: 0 pravastatin 40 MG tablet 40 mg PO DAILY RF: 0 fluoxetine 20 MG capsule 40 mg PO DAILY RF: 0 multivitamin 1 tab PO DAILY RF: 0 dofetilide 125 mcg capsule 125 mcg PO Q12H 90 Days Qty: 180 RF: 3 amlodipine [Norvasc] 5 mg tablet 10 mg PO DAILY RF: 0 cholecalciferol (vitamin D3) 1,000 UNITS tablet 1,000 unit PO DAILY RF: 0 ropinirole 1 mg tablet 2 mg PO BID RF: 0 Discontinued bisacodyl [Dulcolax (bisacodyl)] 5 mg tablet,delayed release (DR/EC) 5 mg PO ONCE Qty: 4 RF: 0 polyethylene glycol 3350 17 gram/dose powder 238 g PO ONCE Qty: 238 RF: 0 polyethylene glycol 3350 17 gram/dose powder 238 g PO ONCE Qty: 238 RF: 0 Eliquis 5 MG tablet 5 mg PO BID RF: 0 vitamin E 400 UNIT capsule 1 tab PO DAILY RF: 0 Discharge Instructions Instructions: Low Fiber Diet (GEN) Additional Instructions: appt 09/28 @ 11:30 -No driving x 72 hrs -Follow-up with Dr. Doty on Saturday -soft diet: No beef/pork/ raw vegetables x1 -week. Cooked vegetables are fine. ground beef, chicken, fish are ok. No breads/past/rice/chips or crackers x 72hrs See below. -no straining to move bowels - if you do not move your bowels daily take a dose of OTC milk of magnesia. Resume your regular schedule of Miralax. -It is ok to shower. -low fiber diet x 24 hrs -You may find that your appetite is smaller. Eat 3-6 small meals throughout the day. It is important to drink lots of water after surgery, 6-10 glasses a day. -If you were given an incentive spirometry (\breathing oil process stillman\[id number]), continue to do this 10x/hour while awake. -We do want you up walking, at least 5-6 times per day. This is very important to prevent pneumonia and blood clots. You can climb stairs, take them slowly. -No lifting over 5-10 pounds ofr two wks. -You may find that you are very tired after surgery- this is normal -You may experience some bleeding w/ BM for 3-5 days. If you atart passing large clots- go to the ER. -If temps>100, severe abdominal pain,vomiting.passing lg clots- go to ED. -no ASA/NSAID's for 2 weeks. Tylenol is OK. -No fish oil/Vit E/garlic supplements for 2 wks. NO BLOOD THINNERS FOR TWO WEEKS. DO NOT start taking your Elliquis. This diet is soft in texture, low in fiber, and easy to digest. The goal is to decrease ) in the bowel that may cause and discomfort. This diet is often used after abdominal surgery or as a transitional diet after flares. Meats & Meat Subsitutes ? Foods Allowed: Chicken, turkey, fish, tender cuts of beef and pork, ground meats, eggs, creamy nut butters, tofu, skinless hot dogs, sausage patties without whole spices ? Foods to Avoid for 4-6 Weeks: Tough, fibrous meats with gristle, meat with casings (hot dogs, sausage, kielbasa), lunch meats with whole spices, shellfish, beans, chunky peanut butter, nuts Fruits and Juices ? Foods Allowed: Fruit juices without pulp, banana, avocado, applesauce, canned peaches and pears, cooked fruit without the skin/seeds ? Foods to Avoid for 4-6 Weeks: Juices with pulp, fresh fruit (except banana and avocado), dried fruits, canned fruit cocktail and pineapple, coconut, frozen/thawed berries Vegetables ? Foods Allowed: Well-cooked or canned vegetables, potatoes without skin, tomato sauces, vegetable juice ? Foods to Avoid for 4-6 Weeks: Raw vegetables, all corn, all mushrooms, stewed tomatoes, potato skins, stir-durand vegetables, sauerkraut, pickles, olives, all dried beans, peas, and legumes Dairy ? Foods Allowed: Milk, cheese, yogurt, milkshakes, pudding, ice cream, cottage cheese, sherbet ; lactose free or low lactose versions if lactose intolerant ? Foods to Avoid for 4-6 Weeks: Dairy product mixed with fresh fruit (except banana), berries, nuts or seeds Desserts ? Foods Allowed: Plain cake, pudding, custard, ice cream, sherbet, gelatin, fruit whips ? Foods to Avoid for 4-6 Weeks: Any dessert that contains nuts, dried fruits, coconut, or fruits with seeds Herbs and Spices ? Foods Allowed: All ground spices or herbs, salt ? Foods to Avoid for 4-6 Weeks: Whole spices such as peppercorns, whole cloves, anise seeds, celery seeds, tiarra, keven seeds, and fresh herbs Snacks/Other Foods ? Foods Allowed: Sugar, honey, jelly, mayonnaise, mustard, soy sauce, oil, butter, margarine, marshmallows, cookies without dried fruits or nuts, snack chips and pretzels using refined flours ? Foods to Avoid for 4-6 Weeks: Carbonated beverages, jams or jellies with seeds, popcorn Guidelines when eating 1. Avoid any food that you cannot tolerate or that causes gas, bloating, or stomach pain. 2. Make time for your meals. Do not eat while you are in a hurry. Cut your food into small pieces. Chew each bite to a mashed potato consistency. Do not eat when you cannot concentrate on chewing well. 3. Drink at least 6-8 cups of fluid per day Fluids include: water, coffee, tea, juice, milk, popsicles, soups, gelatin, pudding, ice cream, sherbet, and yogurt. In addition, choose caffeine-free beverages more often, especially if you are having diarrhea. Referrals: Anabel Doty, [OSTEOPATHIC DOCTOR] - 09/28/19 11:30 am Activity:: no lifting over 10 pounds Equipment/Supplies:: No Equipment Needed Diet:: low fiber x 72 hrs Discharge Orders Discharge Orders: Discharge Order (Routine); Ordered 09/24/19 Ordered By: Anabel Doty DS: Summary Status at Discharge Functional status at discharge: independent ambulation Overall status at discharge: patient is back to baseline Mental Status: mental status grossly normal Speech and Movement: speech and movement normal Mood: congruent mood Affect: normal affect Exam Narrative Exam Narrative: Pt is doing well. no headaches. No CP or SOB. no productive cough. no dysuria. no leg pain or swelling. no N/V. she does have an appetite. mild abdominal tenderness on left side. She has not noticed any bleeding. no distention or bloating. She has been up walking and is passing gas. She tolerated a soft diet. GI Other: good BS. minimally tender. no R/R/G Psych Mental Status: mental status grossly normal Speech and Movement: speech and movement normal Mood: congruent mood Affect: normal affect DS: Data Vitals/I&O Vitals and I&O: Vital Signs Temperature 36.6 C 09/25/19 07:15 Temperature Source Tympanic 09/25/19 07:15 Pulse 79 09/25/19 07:15 Pulse Rhythm Regular 09/25/19 11:01 Respiratory Rate 18 09/25/19 07:15 Respiratory Effort Non-Labored 09/25/19 11:01 Respiratory Depth Normal 09/25/19 11:01 Respiratory Pattern Normal 09/25/19 11:01 Blood Pressure 121/66 09/25/19 07:15 Pulse Oximetry 90 L 09/25/19 07:15 Respiratory End-tidal CO2 33 09/24/19 14:35 Oxygen Delivery Method Room Air 09/25/19 07:15 Oxygen Flow Rate 0 09/25/19 07:15 Fraction of Inspired Oxygen (FIO2) 21 09/25/19 00:51 Pain Level 0 09/25/19 07:15 Intake & Output 09/24/19 09/25/19 09/25/19 23:59 11:59 23:59 Intake Total 2284.583 / 2284.583 964.583 / 1204.583 240 / 1204.583 Output Total 1700 / 1700 Balance 2284.583 / 2284.583 -735.417 / -495.417 240 / -495.417 Weight 80.3 kg Intake: IV 1614.583 / 1614.583 664.583 / 664.583 Oral 670 / 670 300 / 540 240 / 540 Output: Urine 1700 / 1700 Other: Urine Color Pale Yellow Yellow Urine Appearance Clear Clear Urine Odor None Emesis Description None Voiding Methods Toilet Toilet Data Completed and Pending Labs on day of discharge: Labs from last 24 hours 09/25/19 09/25/19 09/25/19 06:20 06:20 06:20 WBC 10.32 RBC 3.57 L Hgb 10.2 L Hct 31.0 L MCV 86.8 MCH 28.6 MCHC 32.9 RDW 14.4 Plt Count 276 MPV 8.7 Immature Gran % 0.2 Neutrophils % 83.8 Lymphocytes % 9.7 Monocytes % 5.4 Eosinophils % 0.8 Basophils % 0.1 Absolute Neutrophils 8.65 H Absolute Lymphocytes 1.00 L Absolute Monocytes 0.56 Absolute Eosinophils 0.08 Absolute Basophils 0.01 Sodium Potassium Chloride Carbon Dioxide Anion Gap BUN Creatinine Estimated GFR/1.73 m2 Glucose Calcium Magnesium Iron 22 L TIBC 231 L Transferrin % Sat 10 L Carcinoembryonic Ag Pending 09/25/19 06:20 WBC RBC Hgb Hct MCV MCH MCHC RDW Plt Count MPV Immature Gran % Neutrophils % Lymphocytes % Monocytes % Eosinophils % Basophils % Absolute Neutrophils Absolute Lymphocytes Absolute Monocytes Absolute Eosinophils Absolute Basophils Sodium 142 Potassium 2.8 L* Chloride 104 Carbon Dioxide 26.8 Anion Gap 11.2 H BUN 10 Creatinine 1.05 H Estimated GFR/1.73 m2 50.56 Glucose 149 H Calcium 8.0 L Magnesium 1.4 L Iron TIBC Transferrin % Sat Carcinoembryonic Ag PENDING SALE TO [facility] Medical History (Updated 09/25/19 @ 13:03 by Anabel Doty DO) Adenomatous polyp of ascending colon (Acute) Atrial fibrillation (Chronic) Bilateral hip pain (Acute) Bilateral knee pain (Acute) Chronic anticoagulation (Acute) Colon cancer (Chronic) 1996, treated with chemotherapy with no resultant issues. Colon cancer (Chronic) Depression (Chronic) Diabetes (Chronic) Dyspnea on exertion (Acute) Elevated antinuclear antibody (MARLON) level (Acute) Fatigue (Acute) Female stress incontinence (Acute) Hearing loss (Acute) History of acute respiratory distress syndrome (ARDS) (Acute) 2008 History of trigger finger (Acute) bilateral HTN (hypertension) (Chronic) Hx of malignant neoplasm of colon (Acute) pt. reports part of colon removed Hyperlipidemia (Acute) Hypokalemia (Acute) Hypomagnesemia (Acute) Hyponatremia (Acute) Insomnia (Acute) Iron deficiency anemia (Acute) Iron deficiency anemia due to chronic blood loss (Acute) Occasional tremors (Acute) Periodic limb movement disorder (PLMD) (Acute) Peripheral neuropathy (Acute) Polyarthralgia (Acute) Pulmonary hypertension (Acute) Restless leg syndrome (Acute) Rhinitis (Acute) Right rotator cuff tear (Chronic) Injection: 05/ Sensorineural hearing loss, bilateral (Chronic 10/13/13) Sleep apnea (Acute) Tendonitis of left rotator cuff (Chronic) Injection: 02/10/19 Surgical History Hx of appendectomy (Chronic) Hx of section (Chronic) Hx of colonoscopy (Chronic) Hx of tonsillectomy (Chronic) Social History Smoking/Tobacco Use Status: Former Tobacco Use Quit Date: 10/07/65 Alcohol Intake: current Alcohol Intake frequency: a few times a month Alcohol type: wine Drug use: Never Substance use type: does not use Details: alcohol: 4 months Do you feel safe at home: Yes Do you feel safe in your relationship?: Yes
--- NOTE | 2019-09-25 13:12 | W.NUTCONSULT ---
Date of service: 09/25/19 Time of Service: 13:12 Nutritional Consult ASSESSMENT: 80 year old female s/p surgery for adenomatous polyp of ascending colon. PMH: HTN, DM, Colon CA (remission) BMI indicates class 1 obesity. Following low fiber diet prior to surgery with adequate intake. Not considered at nutritional risk at this time. Will monitor po intake and weight trends and intervene as needed. Time Spent in Nutritional Counseling and Treatment: 0 time spent face to face
--- NOTE | 2019-09-25 13:57 | PDOC.CMIN ---
- If Service Date Differs Date of service: 09/25/19 Time of Service: 13:57 Care Management Initial Assess REASON FOR HOSPITALIZATION:: multiple large colon polyps PAST MEDICAL HISTORY/PAST SURGICAL HISTORY:: PMH: afib, colon cancer, depression, diabetes dyspnea, fatigue, stress incontinence, ARDS, HTN, trigger finger, hyperliplidermia,hypokalemia, hypomagnesemia, hyponatremia, insomnia, iron deficiencey anemia, tendonitis of left rotator cuff. PSH: appendectomy, section, colonoscopy, tonsillectomy PREVIOUS FUNCTIONAL STATUS/SOCIAL/FAMILY SUPPORTS:: Alysha lives with her in [facility]. They have a son and daughter who both live in [place]. Alysha is independent at baseline and receives no community services. She is retired from the [employer]. CURRENT FUNCTIONAL STATUS:: Alysha was sitting up in bed during CM visit. She was pleasant and quickly engaged in conversation. She stated that she hopes to be able to go home later in the day.She said she is feeling good and has not experienced any bleeding post procedure. ADVANCE DIRECTIVES:: States she has advanced directives but they are not on file. Has patient been provided with information about the portal?: No Did the patient sign up for the portal?: No CODE STATUS:: Full Code INSURANCE COVERAGE / FINANCIAL ISSUES:: [facility] ([facility]) CURRENT HOME/COMMUNITY SERVICES/EQUIPMENT:: none PRIMARY CARE PHYSICIAN:: Tere Sheffield POTENTIAL DISCHARGE NEEDS:: follow up with PCP and discharge plan of care PATIENT/FAMILY EDUCATION NEEDS:: Discharge plan, limitations, follow up plan, Ask Me [employer]. TRANSPORTATION:: via private vehicle with family PLAN:: Alysha will discharge home with no additional services. She will follow up with her PCP and discharge plan of care. CM will continue to support patient, family and discharge planning needs.
[2019-09-25] MEDS: Enoxaparin 40 MG/0.4 ML SYR SC (14:20)
[2019-09-25 15:58] VITALS: BP 128/71; PULSE 76; RESP 17; TEMP 36.6; O2SAT 96
--- NOTE | 2019-09-25 16:06 | CHAPLAIN ---
Alysha was resting in bed when I visited. She said she hopes to be discharged this afternoon and her will be in to visit and hopefully take her home to [place].
[2019-09-28 10:48] LABS: CEA 1.1 ng/mL (See Note)
== END 2019-09-25 17:05 | disposition home or self-care (01) ==
LOC: MS 15:28
PROVIDERS: Admitting Provider Surgery; PCP Nurse Practitioner Family; Visit Provider Surgery
PROC: 0DJD8ZZ Inspection of Lower Intestinal Tract, Via Natural or Artificial Opening Endoscopic (ICD-10-PCS; CPT 45378; principal; 2019-09-24 10:00)
DX: D12.6 Benign neoplasm of colon, unspecified (principal); K63.5 Polyp of colon; Z85.038 Personal history of other malignant neoplasm of large intestine; Z90.49 Acquired absence of other specified parts of digestive tract; Z92.21 Personal history of antineoplastic chemotherapy; Z98.0 Intestinal bypass and anastomosis status; Z87.19 Personal history of other diseases of the digestive system; D64.9 Anemia, unspecified; E87.6 Hypokalemia; E83.42 Hypomagnesemia; I48.91 Unspecified atrial fibrillation; J98.4 Other disorders of lung; E11.9 Type 2 diabetes mellitus without complications; Z79.84 Long term (current) use of oral hypoglycemic drugs; Z79.01 Long term (current) use of anticoagulants; I10 Essential (primary) hypertension; G25.81 Restless legs syndrome; G47.33 Obstructive sleep apnea (adult) (pediatric); M35.3 Polymyalgia rheumatica; F32.9 Major depressive disorder, single episode, unspecified; E78.5 Hyperlipidemia, unspecified
CPT/HCPCS: 45385; 45381; 45380; 45384; 36415; 80048; 88305; 99217; 99239; J1650; NC; 82378; 83540; 83550; 83735; 85025; 94660; G0378; J0696; J1756; J2405; J3475; J3480; J7512

== ENCOUNTER 2019-09-28 10:05 | Outpatient (CLI) | payer OTHER, SELFPAY ==
[2019-09-28 10:31] LABS: Abs Immature Grans 0.03 k/cumm (0.0-0.09); Absolute Basophil Count 0.02 k/cumm (0.0-0.2); Absolute Eosinophil Count 0.26 k/cumm (0.0-0.7); Absolute Lymphocyte Count 1.08 k/cumm (1.2-3.4); Absolute Monocyte Count 0.67 k/cumm (0.11-0.7); Absolute Neutrophil Count 4.58 k/cumm (1.2-6.7); Basophils % 0.3; Eosinophils % 3.9; HCT 35.2 % (36.0-46.0); HGB 11.8 g/dL (12.0-15.5); Immature Grans % 0.5; Lymphocytes % 16.3; Mean Corp. HGB Concentration 33.5 g/dL (32.0-36.0); Mean Corpuscular Hemoglobin 28.9 pg (27.0-33.0); Mean Corpuscular Volume 86.3 fL (80-95); Mean Platelet Volume 8.3 fL (8.0-11.0); Monocytes % 10.1; Neutrophils % 68.9; Platelet Count 331 x1000/uL (130-400); RBC 4.08 m/cumm (4.00-5.20); RBC Distribution Width 14.4 % (11.7-14.6); White Blood Cell Count 6.64 k/cumm (4.4-10.8)
[2019-09-28 11:24] LABS: Iron 56 ug/dL (50-170); Total Iron Binding Capacity 300 ug/dL (250-450); Transferrin Sat 19 % (15-50)
[2019-09-28 11:26] LABS: ALT 65 U/L (14-59); AST 95 U/L (15-37); Albumin 3.8 g/dL (3.4-5.0); Alkaline Phosphatase 63 U/L (46-116); Anion Gap 8.3 mmol/L (3-11); BUN 19 mg/dL (7-18); Bilirubin, Total 0.5 mg/dL (0.2-1.0); CO2 25.7 mmol/L (21.0-32.0); CREATININE 1.15 mg/dL (0.55-1.02); Calcium 8.8 mg/dL (8.5-10.1); Chloride 101 mmol/L (98-107); Estimated GFR 45.52 (mL/min/1.73m2); Glucose 153 mg/dL (74-106); Magnesium 1.6 mg/dL (1.8-2.4); Potassium 3.3 mmol/L (3.5-5.1); Sodium 135 mmol/L (136-145); Total Protein 6.4 g/dL (6.4-8.2)
== END 2019-09-28 10:25 ==
PROVIDERS: PCP Nurse Practitioner Family; Visit Provider Surgery
DX: D12.2 Benign neoplasm of ascending colon; E11.9 Type 2 diabetes mellitus without complications; I10 Essential (primary) hypertension; I48.91 Unspecified atrial fibrillation; M25.50 Pain in unspecified joint; M35.3 Polymyalgia rheumatica; N18.9 Chronic kidney disease, unspecified; E83.42 Hypomagnesemia; D50.0 Iron deficiency anemia secondary to blood loss (chronic); I35.1 Nonrheumatic aortic (valve) insufficiency; Z48.815 Encounter for surgical aftercare following surgery on the digestive system
CPT/HCPCS: 36415; 80053; 83540; 83550; 83735; 85025

== ENCOUNTER 2019-10-09 09:33 | Outpatient (CLI) | payer OTHER, SELFPAY ==
[2019-10-09 10:23] LABS: Abs Immature Grans 0.03 k/cumm (0.0-0.09); Absolute Basophil Count 0.02 k/cumm (0.0-0.2); Absolute Eosinophil Count 0.18 k/cumm (0.0-0.7); Absolute Monocyte Count 0.54 k/cumm (0.11-0.7); Absolute Neutrophil Count 6.07 k/cumm (1.2-6.7); Basophils % 0.2; Eosinophils % 2.1; HCT 34.9 % (36.0-46.0); HGB 11.3 g/dL (12.0-15.5); Immature Grans % 0.4 %; Mean Corp. HGB Concentration 32.4 g/dL (32.0-36.0); Mean Corpuscular Hemoglobin 28.3 pg (27.0-33.0); Mean Corpuscular Volume 87.5 fL (80-95); Mean Platelet Volume 8.4 fL (8.0-11.0); Monocytes % 6.4; Neutrophils % 71.9; Platelet Count 406 x1000/uL (130-400); RBC 3.99 m/cumm (4.00-5.20); RBC Distribution Width 14.7 % (11.7-14.6); White Blood Cell Count 8.44 k/cumm (4.4-10.8)
== END 2019-10-09 09:53 ==
PROVIDERS: PCP Nurse Practitioner Family; Visit Provider Surgery
DX: D50.0 Iron deficiency anemia secondary to blood loss (chronic) (principal); D12.2 Benign neoplasm of ascending colon; I10 Essential (primary) hypertension; E11.42 Type 2 diabetes mellitus with diabetic polyneuropathy; Z85.038 Personal history of other malignant neoplasm of large intestine; Z79.4 Long term (current) use of insulin; I48.91 Unspecified atrial fibrillation; Z79.01 Long term (current) use of anticoagulants; G25.81 Restless legs syndrome
CPT/HCPCS: 36415; 99214; 85025

== ENCOUNTER 2019-10-29 09:52 | Outpatient (REF) | payer OTHER, SELFPAY ==
[2019-10-29 12:29] LABS: Absolute Basophil Count 0.01 k/cumm (0.0-0.2); Absolute Lymphocyte Count 1.01 k/cumm (1.2-3.4); Absolute Monocyte Count 0.55 k/cumm (0.11-0.7); Absolute Neutrophil Count 3.78 k/cumm (1.2-6.7); Basophils % 0.2; Eosinophils % 1.8; HCT 35.8 % (36.0-46.0); Lymphocytes % 18.5; Mean Corp. HGB Concentration 33.5 g/dL (32.0-36.0); Mean Corpuscular Hemoglobin 28.6 pg (27.0-33.0); Mean Corpuscular Volume 85.4 fL (80-95); Monocytes % 10.1; Neutrophils % 69.4; Platelet Count 291 x1000/uL (130-400); RBC 4.19 m/cumm (4.00-5.20); RBC Distribution Width 14.1 % (11.7-14.6); White Blood Cell Count 5.45 k/cumm (4.4-10.8)
[2019-10-29 12:38] LABS: ALT 39 U/L (14-59); AST 30 U/L (15-37); Albumin 3.9 g/dL (3.4-5.0); Alkaline Phosphatase 72 U/L (46-116); Anion Gap 13.6 mmol/L (3-11); BUN 19 mg/dL (7-18); Bilirubin, Total 0.4 mg/dL (0.2-1.0); CO2 26.4 mmol/L (21.0-32.0); CREATININE 0.98 mg/dL (0.55-1.02); Calcium 8.8 mg/dL (8.5-10.1); Chloride 99 mmol/L (98-107); Estimated GFR 54.75 (mL/min/1.73m2); Glucose 138 mg/dL (74-106); Magnesium 1.6 mg/dL (1.8-2.4); Potassium 3.3 mmol/L (3.5-5.1); Sodium 139 mmol/L (136-145); TSH (W/Ref FT4) 2.46 uIU/mL (0.36-3.74); Total Protein 6.7 g/dL (6.4-8.2)
[2019-10-29 12:48] LABS: Iron 41 ug/dL (50-170); Total Iron Binding Capacity 285 ug/dL (250-450); Transferrin Sat 14 % (15-50)
[2019-10-29 13:11] LABS: Vitamin D 25 Total 71.4 ng/ml (30-100)
== END 2019-10-29 10:12 ==
LOC: NCHCN 09:52
PROVIDERS: PCP Nurse Practitioner Family; Visit Provider Nurse Practitioner Family
DX: E11.9 Type 2 diabetes mellitus without complications (principal); D50.9 Iron deficiency anemia, unspecified; I27.20 Pulmonary hypertension, unspecified; I48.91 Unspecified atrial fibrillation; G25.81 Restless legs syndrome; G60.9 Hereditary and idiopathic neuropathy, unspecified; M35.3 Polymyalgia rheumatica; R53.83 Other fatigue; Z79.899 Other long term (current) drug therapy
CPT/HCPCS: 80053; 82306; 83540; 83550; 83735; 84443; 85025

== ENCOUNTER 2019-11-04 01:15 | Outpatient (CLI) | payer OTHER, SELFPAY ==
[2019-11-04] MEDS: Omnipaque 350 MG/ML 50 ML BTL PO (07:02)
--- NOTE | 2019-11-04 08:28 | DI.CT_ITS ---
EXAM: CT ABDOMEN PELVIS W CLINICAL HISTORY: LLQ PAIN,R10.32,ANEMIA,D50.0,H/O COLON CA, Z85.038 TECHNIQUE: Post IV and oral contrast. COMPARISON: No exams were available for comparison FINDINGS: The lung bases are clear. The heart is enlarged. There is a small hiatal hernia. The liver, gallb ladder, spleen, pancreas, kidneys and adrenals are unremarkable. There is no bowel dilatation or inf lammatory change. There is a moderate quantity of stool. No diverticulosis is seen. There is no gr oss evidence of a colonic mass. The appendix is not seen. No adenopathy, free air or free fluid is seen. The uterus, ovaries and bladder are unremarkable. The aorta is normal in diameter. Degenerat mary changes are seen, greatest in the lower lumbar spine. There is a small fatty containing umbilica l hernia. Tubal ligation clips are seen. There are also surgical clips in the anterior left upper q uadrant. IMPRESSION: No acute abnormality.
[2019-11-04] MEDS: Omnipaque 350 MG/ML 100 ML BTL 64 ML IJ (08:42)
[2019-11-04] MEDS: Normal Saline - Diluent 50 ML VIAL IV (08:43)
[2019-11-04] MEDS: Breeza Beverage 473 ML BTL PO ×3 (08:51→08:52)
== END 2019-11-04 01:35 ==
PROVIDERS: PCP Nurse Practitioner Family; Visit Provider Surgery
DX: R10.32 Left lower quadrant pain (principal); D50.0 Iron deficiency anemia secondary to blood loss (chronic); Z85.038 Personal history of other malignant neoplasm of large intestine; I51.7 Cardiomegaly; K44.9 Diaphragmatic hernia without obstruction or gangrene; K42.9 Umbilical hernia without obstruction or gangrene
CPT/HCPCS: 74177; J3490; Q9967

== ENCOUNTER 2019-11-06 10:50 | Outpatient (REF) | payer OTHER, SELFPAY ==
[2019-11-06 21:07] LABS: Magnesium 1.6 mg/dL (1.8-2.4); Potassium 4.1 mmol/L (3.5-5.1)
== END 2019-11-06 11:10 ==
LOC: NCHCN 10:50
PROVIDERS: PCP Nurse Practitioner Family; Visit Provider Nurse Practitioner Family
DX: E83.42 Hypomagnesemia (principal); E87.6 Hypokalemia
CPT/HCPCS: 83735; 84132

== ENCOUNTER 2019-11-30 01:19 | Outpatient (CLI) | payer OTHER, SELFPAY ==
--- NOTE | 2019-11-30 | DI.MAMMO_ITS ---
EXAM: MG MAMMO SCREENING CLINICAL HISTORY: SCREENING MAMMO Z12.31 TECHNIQUE: Mammograms were interpreted according to the usual protocol including computer analysis w [employer] CAD system, tomosynthesis and C-view imaging. COMPARISON: Multiple previous examinations including November 2018 FINDINGS: The breasts are of moderate density with fairly symmetrical distribution of fibroglandular tissue. T here are numerous scattered punctate bilateral microcalcifications, unchanged from multiple previous examinations including November 2018. No new mass or clumped microcalcification is seen. IMPRESSION: No specific evidence of malignancy at this time. Routine screening examinations are suggested at yea rly intervals due to the family history of breast carcinoma. Category 1, breast density category B. BI-RADS Cat 1 - Negative Breast Density - Category B - Scattered areas of fibroglandular density
== END 2019-11-30 01:39 ==
PROVIDERS: PCP Nurse Practitioner Family; Visit Provider Nurse Practitioner Family
DX: Z12.31 Encounter for screening mammogram for malignant neoplasm of breast (principal)
CPT/HCPCS: 77063; 77067

== ENCOUNTER 2019-12-02 00:40 | Outpatient (REF) | payer OTHER, SELFPAY ==
[2019-12-02 22:14] LABS: Magnesium 1.9 mg/dL (1.8-2.4)
== END 2019-12-02 01:00 ==
LOC: NCHCN 00:40
PROVIDERS: PCP Nurse Practitioner Family; Visit Provider Nurse Practitioner Family
DX: E83.42 Hypomagnesemia (principal)
CPT/HCPCS: 83735

== ENCOUNTER 2020-01-26 09:27 | Outpatient (REF) | payer OTHER, SELFPAY ==
[2020-01-26 19:49] LABS: Abs Immature Grans 0.02 k/cumm (0.0-0.09); Absolute Basophil Count 0.01 k/cumm (0.0-0.2); Absolute Eosinophil Count 0.18 k/cumm (0.0-0.7); Absolute Lymphocyte Count 1.11 k/cumm (1.2-3.4); Absolute Monocyte Count 0.44 k/cumm (0.11-0.7); Absolute Neutrophil Count 4.74 k/cumm (1.2-6.7); Basophils % 0.2; Eosinophils % 2.8; HCT 35.3 % (36.0-46.0); HGB 11.5 g/dL (12.0-15.5); Immature Grans % 0.3 %; Lymphocytes % 17.1; Mean Corp. HGB Concentration 32.6 g/dL (32.0-36.0); Mean Corpuscular Hemoglobin 28.2 pg (27.0-33.0); Mean Corpuscular Volume 86.5 fL (80-95); Mean Platelet Volume 8.9 fL (8.0-11.0); Monocytes % 6.8; Neutrophils % 72.8; Platelet Count 343 x1000/uL (130-400); RBC 4.08 m/cumm (4.00-5.20); RBC Distribution Width 14.4 % (11.7-14.6)
[2020-01-26 20:00] LABS: Magnesium 1.9 mg/dL (1.8-2.4)
[2020-01-26 20:03] LABS: Iron 56 ug/dL (50-170)
== END 2020-01-26 09:47 ==
LOC: NCHCN 09:27
PROVIDERS: PCP Nurse Practitioner Family; Visit Provider Nurse Practitioner Family
DX: E83.42 Hypomagnesemia (principal); D50.9 Iron deficiency anemia, unspecified
CPT/HCPCS: 83540; 83735; 85025

== ENCOUNTER 2020-01-29 13:08 | Outpatient (REF) | payer OTHER, SELFPAY ==
[2020-01-29 13:56] LABS: Hemoglobin A1C 6.5 % (3.8-5.6)
[2020-01-29 14:03] LABS: NT-proBNP 493 pg/mL (<300)
== END 2020-01-29 13:28 ==
LOC: NCHCN 13:08
PROVIDERS: PCP Nurse Practitioner Family; Visit Provider Nurse Practitioner Family
DX: R06.00 Dyspnea, unspecified (principal); E11.9 Type 2 diabetes mellitus without complications; R60.0 Localized edema; I27.20 Pulmonary hypertension, unspecified
CPT/HCPCS: 83036; 83880

== ENCOUNTER 2020-03-09 21:05 | Outpatient (REF) | payer OTHER, SELFPAY ==
[2020-03-09 22:19] LABS: TSH (W/Ref FT4) 1.86 uIU/mL (0.36-3.74); Vitamin B12 625 pg/mL (193-986)
== END 2020-03-09 21:25 ==
LOC: NCHCN 21:05
PROVIDERS: PCP Nurse Practitioner Family
DX: R41.3 Other amnesia (principal)
CPT/HCPCS: 82607; 84443

== ENCOUNTER → 2020-03-23 08:56 | Outpatient (BNVA) | payer OTHER, SELFPAY | PROVIDERS: PCP Nurse Practitioner Family; Referring Provider Nurse Practitioner Family; Visit Provider Surgery | DX: R19.7 Diarrhea, unspecified (principal); Z01.818 Encounter for other preprocedural examination; D50.0 Iron deficiency anemia secondary to blood loss (chronic); K21.9 Gastro-esophageal reflux disease without esophagitis; C18.9 Malignant neoplasm of colon, unspecified; Z86.010 Personal history of colon polyps | CPT/HCPCS: 99213 ==

== ENCOUNTER 2020-03-24 09:38 | Outpatient (REF) | payer OTHER, SELFPAY ==
[2020-03-25 10:45] LABS: Campylobacter PCR Negative (Negative); Salmonella PCR Negative (Negative); Shiga Toxin PCR Negative (Negative); Shigella/Enteroinvasive Ecoli Negative (Negative)
== END 2020-03-24 09:58 ==
LOC: LBN 09:38
PROVIDERS: PCP Nurse Practitioner Family; Visit Provider Surgery
DX: R19.7 Diarrhea, unspecified (principal)
CPT/HCPCS: 87505; 87324

== ENCOUNTER 2020-04-04 12:54 | Outpatient (REF) | payer OTHER, SELFPAY ==
[2020-04-04 20:58] LABS: Abs Immature Grans 0.01 k/cumm (0.0-0.09); Absolute Basophil Count 0.01 k/cumm (0.0-0.2); Absolute Eosinophil Count 0.09 k/cumm (0.0-0.7); Absolute Lymphocyte Count 0.96 k/cumm (1.2-3.4); Absolute Monocyte Count 0.47 k/cumm (0.11-0.7); Absolute Neutrophil Count 4.85 k/cumm (1.2-6.7); Basophils % 0.2; Eosinophils % 1.4; HCT 33.2 % (36.0-46.0); HGB 10.9 g/dL (12.0-15.5); Immature Grans % 0.2 %; Mean Corp. HGB Concentration 32.8 g/dL (32.0-36.0); Mean Corpuscular Hemoglobin 28.3 pg (27.0-33.0); Mean Corpuscular Volume 86.2 fL (80-95); Mean Platelet Volume 9.3 fL (8.0-11.0); Monocytes % 7.4; Neutrophils % 75.8; Platelet Count 349 x1000/uL (130-400); RBC 3.85 m/cumm (4.00-5.20); RBC Distribution Width 14.9 % (11.7-14.6); White Blood Cell Count 6.39 k/cumm (4.4-10.8)
[2020-04-04 21:24] LABS: ALT 33 U/L (14-59); AST 29 U/L (15-37); Albumin 3.8 g/dL (3.4-5.0); Alkaline Phosphatase 68 U/L (46-116); Anion Gap 9.6 mmol/L (3-11); BUN 18 mg/dL (7-18); Bilirubin, Total 0.3 mg/dL (0.2-1.0); CO2 26.4 mmol/L (21.0-32.0); CREATININE 1.11 mg/dL (0.55-1.02); Chloride 104 mmol/L (98-107); Estimated GFR 47.29 (mL/min/1.73m2); Glucose 137 mg/dL (74-106); Potassium 3.3 mmol/L (3.5-5.1); Sodium 140 mmol/L (136-145); Total Protein 6.6 g/dL (6.4-8.2)
== END 2020-04-04 13:14 ==
LOC: NCHCN 12:54
PROVIDERS: PCP Nurse Practitioner Family; Visit Provider Nurse Practitioner Family
DX: R19.7 Diarrhea, unspecified (principal)
CPT/HCPCS: 80053; 85025

== ENCOUNTER 2020-04-11 10:36 | Outpatient (REF) | payer OTHER, SELFPAY ==
[2020-04-11 21:27] LABS: Potassium 3.9 mmol/L (3.5-5.1)
== END 2020-04-11 10:56 ==
LOC: NCHCN 10:36
PROVIDERS: PCP Nurse Practitioner Family
DX: E87.6 Hypokalemia (principal)
CPT/HCPCS: 84132

== ENCOUNTER 2020-04-14 09:21 | Outpatient (REF) | payer OTHER, SELFPAY ==
[2020-04-18 15:20] LABS: Calprotectin 154 mcg/g
== END 2020-04-14 09:41 ==
LOC: NCHCN 09:21
PROVIDERS: PCP Nurse Practitioner Family
DX: R19.7 Diarrhea, unspecified (principal)
CPT/HCPCS: 83630; 83993

== ENCOUNTER 2020-04-25 07:44 | Outpatient (CLI) | payer OTHER, SELFPAY ==
[2020-04-27 17:23] LABS: COVID-19 RT-PCR Result NEGATIVE (Negative)
== END 2020-04-25 08:04 ==
PROVIDERS: PCP Nurse Practitioner Family; Visit Provider Surgery
DX: C18.9 Malignant neoplasm of colon, unspecified (principal); D12.2 Benign neoplasm of ascending colon; D50.0 Iron deficiency anemia secondary to blood loss (chronic); K21.9 Gastro-esophageal reflux disease without esophagitis; R19.7 Diarrhea, unspecified; Z01.818 Encounter for other preprocedural examination
CPT/HCPCS: U0003

== ENCOUNTER 2020-04-28 09:15 | Day surgery (SDC) | payer OTHER, SELFPAY ==
--- NOTE | 2020-04-27 23:21 | HPE_ITS ---
Date of service: 04/28/20 Time of Service: 07:00 Assessment and Plan Assessment and plan (1) Polymyalgia rheumatica: Status: Acute (2) Chronic GERD: Status: Acute (3) Diarrhea: Status: Acute (4) Restless legs syndrome (RLS): Status: Acute (5) Iron deficiency anemia due to chronic blood loss: Status: Acute (6) Adenomatous polyp of ascending colon: Status: Acute Assessment and plan: Risks: Informed consent is obtained for the procedural (explained in simple layman's terms that the pt and/or family could understand) explaining risks vs benefits and alternatives to the procedure and consequences if we do not do the procedure and need/rational for the procedure. Risks include but are not limited to:bleeding, infection, perforation of colon. This would necessitate emergency surgery to repair the damage w/ possible ostomy; and other associated complications w/ the required surgery. Also complications of anesthesia including aspiration,ID/CVA/. chronic diarrhea w/ no improvement (7) Colon cancer: Status: Chronic (8) HTN (hypertension): Status: Chronic (9) Diabetes: Status: Chronic (10) Atrial fibrillation: Status: Chronic History of Present Illness Her reflux has been about the same. Her diarrhea has been quite bad. It is frequent. She goes 3-4 times a day. She seems to have the urgency rate after eating. She has she also has issues with control. She is actually not eating because of the diarrhea after eating. She also has no appetite. She says she is losing weight. She has not noticed any blood in her stools. She has no pain or difficulty swallowing. Just no appetite. She denies any abdominal pain at all. We did test her for C. difficile and this was negative. The cholestyramine did not help. She does has severe restless legs and we could not do her colonoscopy with sedation. Paralyzed. She also had a large villous on her scope 6 months ago. She also has a history of colon cancer. She denies any chest pain or shortness of breath today. She has been off her blood thinner. She has not been in the emergency room lately. She has not had any exposed to Cobin that she is aware. He is otherwise not had any significant changes in her medications other than what I have. Narrative: has been having diarrhea since February. pt had bad shingles. Started on gabepentin for PHN. since than she has been having severe diarrhea. She has stopped the gabepentin and stil having diarrhea. pt is not eating. pt is having about 3 episodes. started taking immodium and is starting to form. if she doesnt take it- its just water. no blood. she has lost 11#'s. but she is not eating. + naeuasea. occ will have cramps or gas pains. She has gas pains before she has to move her boels. no perstent abdominal pain. when she does have pain it is on the left side. She did have have pneumonia in september and was on prolonged abx. but she has not been on abx since october. the diarrhea didn't start until february. she has been isolating and in hop and not around anyone w/ c. diff that shes knows. Patient has been anemic since 2018. An abnormal for good etiology has been established for this. Patient also notes lately that she has been having a lot of symptoms of heartburn and indigestion. She has a hiatal hernia. She normally does not have problems with heartburn and indigestion. She notes that she is been under a lot of stress lately, especially since she had the shingles. She is developed chronic pain with the shingles. She is on aspirin daily for her A. fib. She is not on stomach medication. She has not been on abx- only acyclovir. She is s/p sigmoid resection for CRC. She has had a villous. There are no divertic noted on CT. She still has her GB in place. We did try patient on fiber, and cholestyramine. These have not helped her diarrhea. She was tested for C. difficile and stool cultures. These were all normal. She did have a Cobin test and this was normal. She continues to have problems with diarrhea and reflux. On her last colonoscopy she did have a villous adenoma. She also had such severe restless legs that we had to paralyze her to facilitate doing a colonoscopy. She does need to be a GETA today. Review of Systems All systems reviewed & are unremarkable except as noted in HPI and below [facility] Medical History Adenomatous polyp of ascending colon (Acute) Atrial fibrillation (Chronic) F/U with Dr. Mendez regularly at [place], last seen 03/21/20. Per pt. everything stable Bilateral hip pain (Acute) Bilateral knee pain (Acute) Chronic anticoagulation (Acute) Chronic GERD (Acute) Colon cancer (Chronic) 1996, treated with chemotherapy with no resultant issues. Colon cancer (Chronic) Depression (Chronic) Diabetes (Chronic) Diarrhea (Acute) Dyspnea on exertion (Acute) Elevated antinuclear antibody (MARLON) level (Acute) Fatigue (Acute) Female stress incontinence (Acute) Hearing loss (Acute) History of acute respiratory distress syndrome (ARDS) (Acute) 2008 History of trigger finger (Acute) bilateral HTN (hypertension) (Chronic) Hx of malignant neoplasm of colon (Acute) pt. reports part of colon removed Hyperlipidemia (Acute) Hypokalemia (Acute) Hypomagnesemia (Acute) Hyponatremia (Acute) Insomnia (Acute) Iron deficiency anemia (Acute) Iron deficiency anemia due to chronic blood loss (Acute) Occasional tremors (Acute) Periodic limb movement disorder (PLMD) (Acute) Peripheral neuropathy (Acute) Polyarthralgia (Acute) Preop testing (Acute) Pulmonary hypertension (Acute) Restless leg syndrome (Acute) Restless legs syndrome (RLS) (Acute) Rhinitis (Acute) Right rotator cuff tear (Chronic) Injection: / Sensorineural hearing loss, bilateral (Chronic 10/13/13) Sleep apnea (Acute) uses cpap Tendonitis of left rotator cuff (Chronic) Injection: 02/10/19 Surgical History Hx of appendectomy (Chronic) Hx of section (Chronic) Hx of colonoscopy (Chronic ~09/24/19) Hx of tonsillectomy (Chronic) Social History Smoking/Tobacco Use Status: Former Tobacco Use Quit Date: 10/07/1965 Alcohol Intake: current Alcohol Intake frequency: a few times a month Alcohol type: wine Drug use: Never Substance use type: does not use Do you feel safe at home: Yes Do you feel safe in your relationship?: Yes Meds Home Medications and Allergies Home Medications Medication Instructions Recorded Confirmed Type Multivitamin 1 tab PO DAILY 06/23/14 04/28/20 History metformin 500 mg PO DAILY 06/23/14 04/28/20 History pravastatin 40 mg PO DAILY tab-cap 06/23/14 04/28/20 History cholecalciferol (vitamin D3) 1,000 unit PO DAILY 01/21/18 04/28/20 History dofetilide 125 mcg capsule 125 mcg PO Q12H 90 Days #180 cap 05/15/19 04/28/20 Rx ropinirole 1 mg tablet 2 mg PO BID tab 05/15/19 04/28/20 History magnesium chloride 64 mg 64 mg PO BID tab 06/26/19 04/28/20 History (magnesium chloride) tablet,delayed release ramelteon 8 mg tablet 8 mg PO QHS tab 06/26/19 04/28/20 History albuterol sulfate 90 mcg/actuation 2 puff IH Q6H PRN 08/04/19 04/28/20 History aerosol inhaler glycopyrrolate 9 mcg-formoterol 2 puff IH BID 08/04/19 04/28/20 History 4.8 mcg HFA aerosol inhaler modafinil 100 mg tablet 50 mg PO DAILY PRN tab 08/04/19 04/28/20 History Lactobacillus acidophilus 100 mg PO BID #60 cap 09/25/19 04/28/20 Rx apixaban 5 mg tablet 5 mg PO BID 03/22/20 04/28/20 History amlodipine 5 mg tablet 5 mg PO DAILY tab 03/23/20 04/28/20 History fluoxetine 20 mg capsule 40 mg PO DAILY tab-cap 03/23/20 04/28/20 History metoprolol tartrate 50 mg tablet 50 mg PO BID 03/23/20 04/28/20 History cholestyramine-aspartame 4 gram 4 gm PO ONCE #210 gm 03/25/20 04/28/20 Rx oral powder [id number]-[id number]-yjyskoqm 1 inh INHALATION QAM 04/26/20 04/28/20 History [Trelegy Ellipta] Allergies Allergy/AdvReac Type Severity Reaction Status Date / Time chlorpheniramine polistirex AdvReac Verified 04/28/20 09:29 [From Tussionex] hydrocodone polistirex AdvReac causes me Verified 04/28/20 09:29 [From Tussionex] to be high Exam Chest Chest: normal inspection of the chest Resp Effort & Inspection: normal respiratory effort and able to speak in complete sentences Auscultation: clear to auscultation bilaterally Cardio Jugular venous pressure: no JVD Rate: regular rate Rhythm: other GI Inspection: normal to inspection and obesity Palpation: soft Other: Abdominal incision clean dry and intact and well-healed. She has no abdominal hernias. Abdomen was soft there is no distention. She has good bowel sounds. No ascites. No organomegaly. COVID-19 Screening Have you,or household,traveled outside [place] in last 14 days?: No Had IN PERSON contact w/suspected or confirmed C-19 person: No
[2020-04-28 09:23] VITALS: BP 132/77; PULSE 85; RESP 22; TEMP 36.7; O2SAT 96
[2020-04-28] MEDS: Lactated Ringers 1,000 ML 100 ML IV (10:00)
--- NOTE | 2020-04-28 10:28 | W.COLOREPORT ---
Date of service: 04/28/20 Time of Service: 10:28 Colonoscopy Report Date of procedure: 04/28/20 Pre-op diagnosis general: Diarrha/villous adenoma/GERD/hx of CRC Post-op diagnosis procedure note: other (x2 polyps @ 70cm hot polypectomy x2 and bx in cecum/R colon and rectum ) Procedure: see above Surgeon: Anabel Doty Retraction Time: 20 mins Procedure Description: After informed consent was obtained the patient was taken to the procedure room and placed in a left decubitous position. Monitors were applied and a time out was done. The patients name, date of , procedure, allergies to medications and metal in their body was reviewed. The patient was then sedated. Once sedated and comfortable a rectal exam was done. External exam shows Mild irritation from prep. Internal exam revealed a normal sphincter tone and no palpable masses. The scope was then introduced and retrofelexed. no internal hemorrhoids were identified. The scope was then advanced to the cecum w/out difficulty. The TI and appendiceal orifice were identified. The prep was good. The scope was then slowly retracted over 20-30 minutes back into the rectum. Previous sigmoid resection for cancer. She has 1 or 2 small diverticula but none significant. The mucosa is pink and healthy there are no signs of any infections or anything that could have been causing her chronic diarrhea. Random biopsies taken in the cecum, the rectum and the right colon. The previous site of her polyp removal is about 80 cm. Scarring and tattoo from this visualized. She has x2 polyps at 70 cm; 1 is quite small and is removed with a hot forcep. The other is meduim and flat; this is removed with a hot snare. All specimen is retrieved and no bleeding is noted. This polyp is quite a bit smaller than the one she had 6 months ago. The the scope was removed and the patient was woken up and taken back to Same day surgery in stable condition. Overall her colon looks quite healthy and I do not have an etiology for her diarrhea. The patient tolerated the procedure well and there were no immediate complications. Follow up: Patient will follow-up with me in the office in 1 to 2 weeks for removal, with a plan for her next colonoscopy. IF she develop changes in bowel habits or other new gastrointestinal complaints, contact her PCP or our office.
--- NOTE | 2020-04-28 10:28 | W.PM.ENDDOP ---
Date of service: 04/28/20 Time of Service: 10:29 Endoscopy Report DATE OF PROCEDURE: 05/01/20 PRE-OP DIAGNOSIS: GEDR S/s POST-OP DIAGNOSIS: other (hiatal hernia- moderate. duodentitis/gastritis- moderate) PROCEDURE: EGD w/ Bx SURGEON: Anabel Doty ANESTHESIA: MAC ESTIMATED BLOOD LOSS: 1 PATHOLOGY: other COMPLICATIONS: None DISPOSITION: same day PROCEDURE DESCRIPTION: After informed consent was obtained the patient was take to the procedure room and placed in a supine position. Monitors were applied and a time out was done. The patients name, date of , procedure type, allergies to medications and metal in their body was reviewed. A bite block was placed and the patient was sedated. Once sedated and comfortable the gastroscope was advanced through the oropharynx which was grossly normal into the esophagus. The proximal and mid-esophagus were nl. In the distal esophagus there was hiatal hernia noted. The scope was advanced into the stomach and through the pylorus into the 3rd portion of the duodenum. The duodenum was noted to be ild duodenitis. Biopsies were done. All specimens were retrieved and no bleeding was noted. The scope was retracted back into the stomach and biopsies were done to rule out H. pylori. There were no ulcers. She does have a moderate gastritis pattern throughout the body stomach. The scope was retroflexed. The cardia and fundus were noted to be normal. There small to medium hiatal hernia noted. mucosa is pink and healthy with no signs of gastritis. There is no signs of esophagitis at the GE junction. The scope was retracted back into the esophagus and biopsies were done of the GE junction to rule out Gil's. The Z line was regular. The scope was removed and the patient was woken up and taken back to [facility] in stable condition. Follow up:
--- NOTE | 2020-04-28 11:00 | STOM_PTH ---
PATIENT: Alysha Kay LOC: [facility] U#:[id number] AGE/SX: 80/F ROOM: RE04/28/[address]: Anabel Doty : 1940 BED: DIS: 04/28/2020 SPEC #: [id number] RECD: 04/28/20 13:14 STATUS: KANNAN RE #: [id number] QAMAR: 04/28/20 11:[address]: Anabel Doty DEPT: Surgical Specimen RECD BY: Marli Yusuf ENTERED: 04/28/20 13:15 SP TYPE: STOMACH OTHR DR: Tere Sheffield Tissues: 1 - BIOPSY BOWEL 2 - STOMACH BIOPSY 3 - STOMACH BIOPSY 4 - ESOPHAGUS BIOPSY 5 - ESOPHAGUS BIOPSY 6 - BIOPSY BOWEL 7 - BIOPSY BOWEL 8 - BIOPSY BOWEL Procedures: GROSS AND MICRO LEVEL 4 Comments: [id number]
[2020-04-28 12:01] VITALS: BP 125/57; PULSE 62; RESP 20; TEMP 36.5; O2SAT 98
[2020-04-28 12:06] VITALS: BP 131/49; PULSE 62; RESP 20; TEMP 36.5; O2SAT 97
--- NOTE | 2020-04-28 12:06 | PDOC.DSDIS_ITS ---
Discharge Plan Disposition Patient Disposition: HOME Condition: Good Discharge Details Reason For Visit: stomach and colon scope Attending Provider: Anabel Doty Primary Care Provider: Tere Sheffield Home Meds and New Rx's Prescriptions: New pantoprazole [Protonix] 40 mg tablet,delayed release (DR/EC) 40 mg PO DAILY Qty: 30 RF: 12 loperamide 2 mg capsule 2 mg PO Q6H PRNQty: 240 RF: 12 Continued magnesium chloride 64 mg tablet,delayed release (DR/EC) 64 mg PO BID RF: 0 ramelteon [Rozerem] 8 mg tablet 8 mg PO QHS RF: 0 albuterol sulfate [ProAir HFA] 90 mcg/actuation HFA aerosol inhaler 2 puff IH Q6H PRNRF: 0 modafinil 100 mg tablet 50 mg PO DAILY PRNRF: 0 Bevespi Aerosphere 9-4.8 mcg HFA aerosol inhaler 2 puff IH BID RF: 0 Eliquis 5 mg tablet 5 mg PO BID RF: 0 metoprolol tartrate [Lopressor] 50 mg tablet 50 mg PO BID RF: 0 amlodipine [Norvasc] 5 mg tablet 5 mg PO DAILY RF: 0 fluoxetine 20 mg capsule 40 mg PO DAILY RF: 0 metformin 500 MG tablet 500 mg PO DAILY RF: 0 pravastatin 40 MG tablet 40 mg PO DAILY RF: 0 multivitamin 1 tab PO DAILY RF: 0 dofetilide 125 mcg capsule 125 mcg PO Q12H 90 Days Qty: 180 RF: 3 Trelegy Ellipta 100-62.5-25 mcg blister with device 1 inh INHALATION QAM RF: 0 cholecalciferol (vitamin D3) 1,000 UNITS tablet 1,000 unit PO DAILY RF: 0 ropinirole 1 mg tablet 2 mg PO BID RF: 0 Lactobacillus acidophilus Capsule 100 mg PO BID Qty: 60 RF: 0 Discontinued Cholestyramine Light 4 gram powder 4 gm PO ONCE Qty: 210 RF: 0 Discharge Instructions Additional Instructions: Findings:hiatal hernia/duodenitis/gastritis. New Rx: Protonix for reflux. Loperamide for diarrhea. Do not stop the loperamide for 2-3 days. Can take 1-2 pills after each episode of diarrhea. DO not take more than 8 pills per day. Continue with lifestyle modifications: no alcohol, tobacco products, Aspirin or NSAID's (ibuprofen, Motrin, Naprosyn, aleve, etc), soda pop/any carbonated beverages, caffeine (including tea & chocolate), and acidic foods, (tomatoes, citrus, onions, peppermints) spicy or foods. Do not lie down for 30 minutes after eating, and do not eat 2 hours prior to bedtime. Avoid wearing tight fitting clothing/ belts Resume Elliquis on 05/02. no ASA/NSAID's for 2 wks. Tylenol is ok. Follow up:2-3 wks May 11 9:30pm Please call if you develop: fevers >101.5 Nausea or Vomiting Abdominal pain that is not transient DAY SURGERY UNIT POST COLONOSCOPY INSTRUCTIONS 1. Because there will be medication in your system for the next 24 hours, you ma y feel a little sleepy. Your coordination will be affected. Therefore: a. Do not drive or operate dangerous equipment for 24 hours. b. Do not drink alcohol beverages for 24 hours (not even beer). c. Plan to go home and rest for the day. 2. Generally there are no restrictions on your activity after a day or so has gone by, but you may feel a bit fatigued for a few days. 3 After you arrive home you may have a light meal and return to a normal diet as you can tolerate it without feeling sick to your stomach. 4. After surgery, you may feel pain or discomfort. This should be only transient, but if it persists please contact your doctor. 5. If there are any questions regarding the findings of your procedure, please feel free to contact your doctor. 6. If you are unable to contact your doctor with a problem, contact the hospital at [phone]. 7. Continue all your regular medications unless directed otherwise. I understand the above instructions and have no questions. Signature of Patient or Responsible Adult Escort Date/Time Name of Responsible Adult Escort Signature of Nurse Date/Time Stand Alone Forms: Deena Kasper ([facility]ISSY[facility]) Activity:: No lifting over 20 pounds or strenuous activity x72 hours Diet:: Small light meals x24 hours Discharge Orders Discharge Orders: Discharge Order (Routine); Ordered 04/28/20 Ordered By: Anabel Doty DS: Diagnosis Discharge Diagnosis (1) Polymyalgia rheumatica: Status: Acute (2) Chronic GERD: Status: Acute (3) Diarrhea: Status: Acute (4) Restless legs syndrome (RLS): Status: Acute (5) Iron deficiency anemia due to chronic blood loss: Status: Acute (6) Adenomatous polyp of ascending colon: Status: Acute (7) Colon cancer: Status: Chronic (8) HTN (hypertension): Status: Chronic (9) Diabetes: Status: Chronic (10) Atrial fibrillation: Status: Chronic
[2020-04-28 12:11] VITALS: BP 115/61; PULSE 67; RESP 21; TEMP 36.5; O2SAT 94
[2020-04-28 12:25] VITALS: BP 129/60; PULSE 58; RESP 21; TEMP 36.5; O2SAT 95
[2020-04-28 13:02] VITALS: BP 108/63; PULSE 64; RESP 18; TEMP 36.4; O2SAT 97
== END 2020-04-28 14:05 | disposition home or self-care (01) ==
PROVIDERS: PCP Nurse Practitioner Family; Visit Provider Surgery
PROC: (CPT 45385; principal; 2020-04-28 10:15)
DX: R19.7 Diarrhea, unspecified (principal); K21.9 Gastro-esophageal reflux disease without esophagitis; Z85.038 Personal history of other malignant neoplasm of large intestine; Z90.49 Acquired absence of other specified parts of digestive tract; K44.9 Diaphragmatic hernia without obstruction or gangrene; K29.80 Duodenitis without bleeding; K29.70 Gastritis, unspecified, without bleeding; K21.0 Gastro-esophageal reflux disease with esophagitis; K52.832 Lymphocytic colitis; D12.6 Benign neoplasm of colon, unspecified; K57.30 Diverticulosis of large intestine without perforation or abscess without bleeding; I10 Essential (primary) hypertension; E11.9 Type 2 diabetes mellitus without complications; D50.0 Iron deficiency anemia secondary to blood loss (chronic)
CPT/HCPCS: 45385; 45384; 43239; 88305; NC; J2001; J3010

== ENCOUNTER → 2020-05-11 09:28 | Outpatient (BNVA) | payer OTHER, SELFPAY | PROVIDERS: PCP Nurse Practitioner Family; Referring Provider Nurse Practitioner Family; Visit Provider Surgery | DX: K52.831 Collagenous colitis (principal) | CPT/HCPCS: 99212 ==

== ENCOUNTER 2020-05-12 09:22 | Outpatient (REF) | payer OTHER, SELFPAY ==
[2020-05-12 20:35] LABS: HCT 32.2 % (36.0-46.0); HGB 10.7 g/dL (11.2-15.7); MCH 28.6 pg (27.0-33.0); MCHC 33.2 % (32.0-36.0); MCV 86.1 fL (80-95); MPV 9.8 fL (8.0-11.0); Platelet Count 300 10^3/uL (130-400); RBC 3.74 10^6/uL (3.93-5.22); RDW-SD 43.8 fL; WBC 5.59 10^3/uL (4.4-10.8)
[2020-05-12 21:05] LABS: Iron 49 ug/dL (50-170); Total Iron Binding Capacity 368 ug/dL (250-450); Transferrin Sat 13 % (15-50)
== END 2020-05-12 09:42 ==
LOC: NCHCN 09:22
PROVIDERS: PCP Nurse Practitioner Family
DX: R53.83 Other fatigue (principal); D50.9 Iron deficiency anemia, unspecified; E87.6 Hypokalemia; K52.832 Lymphocytic colitis
CPT/HCPCS: 85027; 83540; 83550

== ENCOUNTER → 2020-06-01 08:58 | Outpatient (BNVA) | payer OTHER, SELFPAY | PROVIDERS: PCP Nurse Practitioner Family; Referring Provider Nurse Practitioner Family; Visit Provider Surgery | DX: K52.831 Collagenous colitis (principal); M35.3 Polymyalgia rheumatica; K21.9 Gastro-esophageal reflux disease without esophagitis; D12.2 Benign neoplasm of ascending colon; D50.0 Iron deficiency anemia secondary to blood loss (chronic) | CPT/HCPCS: 99213 ==

== ENCOUNTER → 2020-07-06 09:03 | Outpatient (BNVA) | payer OTHER, SELFPAY | PROVIDERS: PCP Nurse Practitioner Family; Referring Provider Nurse Practitioner Family; Visit Provider Surgery | DX: K52.831 Collagenous colitis (principal); K21.9 Gastro-esophageal reflux disease without esophagitis; D12.2 Benign neoplasm of ascending colon; E11.9 Type 2 diabetes mellitus without complications; I10 Essential (primary) hypertension | CPT/HCPCS: 99212 ==

== ENCOUNTER 2020-08-11 09:57 | Outpatient (REF) | payer OTHER, SELFPAY ==
[2020-08-11 21:42] LABS: HCT 32.5 % (36.0-46.0); HGB 10.4 g/dL (11.2-15.7); MCH 28.4 pg (27.0-33.0); MCV 88.8 fL (80-95); MPV 9.4 fL (8.0-11.0); Platelet Count 306 10^3/uL (130-400); RBC 3.66 10^6/uL (3.93-5.22); RDW 13.9 % (11.7-14.6); RDW-SD 45.3 fL; WBC 5.55 10^3/uL (4.4-10.8)
[2020-08-11 21:56] LABS: Anion Gap 11.1 mmol/L (3-11); BUN 26 mg/dL (7-18); CO2 26.9 mmol/L (21.0-32.0); CREATININE 1.08 mg/dL (0.55-1.02); Chloride 102 mmol/L (98-107); Estimated GFR 48.81 (mL/min/1.73m2); Glucose 141 mg/dL (74-106); Magnesium 1.7 mg/dL (1.8-2.4); Potassium 4.2 mmol/L (3.5-5.1); Sodium 140 mmol/L (136-145)
[2020-08-11 22:20] LABS: Iron 41 ug/dL (50-170); Total Iron Binding Capacity 384 ug/dL (250-450); Transferrin Sat 11 % (15-50)
== END 2020-08-11 10:17 ==
LOC: NCHCN 09:57
PROVIDERS: PCP Nurse Practitioner Family
DX: E11.9 Type 2 diabetes mellitus without complications (principal); E87.6 Hypokalemia; D50.9 Iron deficiency anemia, unspecified; E83.42 Hypomagnesemia; I10 Essential (primary) hypertension
CPT/HCPCS: 80048; 85027; 83540; 83550; 83735

== ENCOUNTER 2020-09-28 09:13 | Outpatient (REF) | payer OTHER, SELFPAY ==
--- OUTSIDE RECORDS SUMMARY | 2020-09-28 09:17 | XMS_ITS | Encounter Summary ---
:1940 Author Care Team Providers Name Role Phone Tere Sheffield APRN Primary Care Provider [phone] Diane Tidwell MD Ecology Teacher [phone] Reason for Visit None recorded. Assessment and Plan 1. Chronic lung disease Marked improvement of her prev ious dyspnea on Trelegy inhaler. She also had ARDS in the past. She was prolonged mechanically ventilated. She has somewhat of a restrictive pattern on pulmonary function testing with slightly low DLCO, Her chest CT from [facility] 05/29/2019 thankful ly did not show any significant fibrotic disease as a consequence of the previous ARDS. There is somewhat mosaic appearance of the lung signifying air trapping, a s well as upper lobe predominant bleb fo rmations. There are minimal atelectatic streaks in the mid lung pabon. 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 She has had remarkable clinical improvem ent of her dyspnea on Trelegy. We will continue with that. She will continue to stay away from the [facility]. Continue with albuterol as needed. Prescriptions were sent. I am also very concerned about conflict ing reports on echocardiogram from 2018 from [facility] in 2019 from [facility], if it is in fact true, it appears that her ejection fraction went from 55-60% to 30% within th e matter of 1 year. This definitely need s to be followed up on. Her pulmonary pressures also appear to have come down from 40-45mmHg to 15-25 mmHg. Overall there is a great deal of discre pancy between the 2 reports. We really need to find out what is going on with her heart Her pneumococcal 23 and PCV?13 vaccinati ons are up-to-date. She already got her flu shot She will follow-up with me in 12 months 2. Obstructive sleep apnea syndr ome CPAP compliance 07/25/2020? shows more than 4 hours per night compliance 57%, overall residual AHI 0.4/h, median pressure 12, 95th percentile average pressure 14 on auto CPAP 10?18 cmH2O she is not using her machine at least 4 hours at night due to poor quality sleep with multiple awakenings. She then goes to the bathroom or sits up to read and she takes off her mask. She is now doing better with sleep consolidation with Courtney erem. She will continue with that. Her mask is poorly fitting, I ordered a new formal mask fitting session from [facility]. We also talked about using the [employer] ada aner, she does not have Internet at home she cannot order it but we talked about ways how she could still get 1 of those home care physical therapist. ? mask fitting - pt needs a new , FORMAL mask fitting, current mask does NOT fit well. She may need a smaller siz e. 3. Periodic limb movement disord er Discussion Note More than 25 minutes were spent wit h the patient , more than 50% of the time counseling Patient educational handouts: No information available. Plan of Care Reminders Provider Appointments Return to on or around ? Office 08/26/2021 Lab None ? ? recorded. Referral None ? ? recorded. Procedures None ? ? recorded. Surgeries None ? ? recorded. Imaging None ? ? recorded. Medications Name Start Date ? ? amlodipine 10 mg-atorvastatin 10 mg tablet ? Take 1 tablet every day by oral route. dofetilide 125 mcg capsule ? Take 1 capsule twice a day by oral route. Eliquis 5 mg tablet ? Take 1 tablet twice a day by oral route. ferrous sulfate 325 mg (65 mg iron) tablet ? Take 1 tablet every day by oral route. fluoxetine 20 mg capsule ? Take 1 capsule every day by oral route. gabapentin 300 mg capsule ? Take 1 capsule 3 times a day by oral route. magnesium gluconate 27 mg magnesium (500 mg) tablet ? Start with 1 tablet in evening. If leg cramps persist and NO loose stools, may increase to 1 tablet twice daily (day and night) metformin 500 mg tablet ? Take 1 tablet every day by oral route. modafinil 100 mg tablet ? Take 1/2 to 1 tablet daily as needed for daytime slee piness multivitamin ? Norvasc 10 mg tablet ? Take 1 tablet every day by oral route. pravastatin 40 mg tablet ? Take 1 tablet every day by oral route. prednisone 5 mg tablet ? Take 1 tablet every day by oral route. ProAir HFA 90 mcg/actuation aerosol inhaler ? Inhale 2 puffs every 4 hours by inhalation route as n eeded. ramelteon 8 mg tablet ? TAKE ONE TABLET BY MOUTH AT BEDTIME ropinirole 1 mg tablet ? Take 2 tabs in early afternoon and 2 tabs at bedtime for restless legs ropinirole 2 mg tablet ? Take 1 tablet 3 times a day by oral route as needed f or 90 days. Trelegy Ellipta 100 mcg-62.5 mcg-25 mcg powder for inh alation ? Inhale 1 puff every day by inhalation route. valacyclovir 1 gram tablet ? Take 1 tablet every 12 hours by oral route. Vitamin D ? vitamin E ? 400mg Medications Administered None recorded. Vitals Height Weight BMI Blood Pressure 4 ft 11.5 in 76 kg 33.3 kg/m2 142/82 mm[Hg] Results Lab Results None recorded. Allergies Code Code System Name Reaction Severity Onset Tussionex ? ? ? Problems Name Status Onset Date Source ? Cramp in Lower Limb Associated with Sleep Active 2017 ? Type 2 Diabetes Mellitus without Active ? History Complication Vitamin D Deficiency Active ? History Hyperlipidemia Active ? History Obesity Active ? History Depressive Disorder Active ? History Insomnia Active ? History Obstructive Sleep Apnea Syndrome Active ? History Periodic Limb Movement Disorder Active ? ? Restless Legs Active ? History Hearing Loss Active ? History Hearing Difficulty Active ? ? Hypertensive Disorder Active ? History Atrial Fibrillation Active ? History Chronic Lung Disease Active ? ? Genuine Stress Incontinence Active ? Hist ory Female Stress Incontinence Active ? ? Shoulder Joint Pain Active ? History Lack of Energy Active ? History Dyspnea Active ? History History of Malignant Neoplasm of Colon Active ? History History of Respiratory Disease Active ? H istory Procedures None recorded. Vaccine List Vaccine Type influenza, injectable, quadrivalent 06/15/2018 pneumococcal conjugate PCV 13 09/18/2016 pneumococcal polysaccharide PPV23 11/01/2010 Tdap 07/30/2012 zoster recombinant 08/05/2017 Social History Tobacco Smoking Status Former Smoker Notes: 16, 1/2 ppd. quit 1968 Exposure to Asbestos N Exposure to Chemicals or Toxins N Are you currently employed? N Blind or serious difficulty seeing Y Not es: wears glasses Most Recent Tobacco Use Screening 03/17/2019 Exposure to Silica N Alcohol intake Occasional Notes: a couple t imes per year Live alone or with others? with others Notes: Mar ried lives with spouse Pets? Y Notes: cat Language Difficulties No Passive smoke exposure? N Hard of hearing or deaf in one or N both ears? Caffeine intake Occasional Notes: 1-2 cup co ffee Drug Use N Occupation retired Functional Status Blind or serious Yes difficulty seeing? Past Encounters 08/26/2020 Chronic Lung Disease; Obstructive Sleep Apnea Syndrome; Periodic Limb Movement Disorder Naomie Mo MD: [address] [place] [address] Dr hernandez [address], [place] [address], Ph. History of Present Illness Note: <p></p><p>80-year-old woman who comes in for follow- up for dyspnea.</p><p>Previously, I reviewed all the notes from Dr. Mimi Cifuentes her previous compensator worker. The patient tells me that she saw Dr. Hannon as well once, but I do not have his notes. Dr. Cifuentes had the patient on Bevespi but documented that the patient was quite noncompliant with therapy.</p><p>Since the last visit with me, 01/01/2020, the patient was started on Trelegy instead of the Bevespi. With that she has been experiencing significant decrease in her shortness of breath and coughing. She is feeling very good and hardly ever needs albuterol.
</p><p>
</p><p>She does not know when her lung disease problem started, she has no childhood history of asthma. She says she was never explicitly told that she had COPD.</p><p>
</p><p>She was diagnosed with colon cancer in 1996 and had a guy-colectomy, and chemotherapy but no radiation. No recurrence. She had a respiratory infection that triggered ARDS and she was intubated in 2009 for over a month. She had a tracheostomy for 6 weeks and a feeding tube. She was in a chronic rehab center for 2 weeks, eventually recovered. Her shortness of breath appears that has started since the ARDS.</p><p>She has not had any respiratory infections in the last 6 months.
</p><p>
</p><p>She was diagnosed with rheumatoid arthritis last year, in 2019 initially, and started on prednisone. She then had a rheumatology visit at [facility] and they told her that she has no rheumatoid arthritis but in fact she has PMR. She was then kept on low-dose prednisone for at least 6 months. She has been tapered off prednisone since December,. No recurrence of symptoms.</p><p>So far she has no muscle weakness or aches.</p>< p>
</p><p>She also has underlying obstructive sleep apnea she is compliantlyusing CPAP therapy with an auto CPAP 10–18 cmH2O, but initial night much less than 4 hours total. This is due to her not sleeping well altogether, waking up multiple times and going to the bathroom, sometimes afterwards reading for a while before falling back to sleep. She is now on Rozerem which helps consolidate her sleep better.
</p><p>
</p><p>Social history she quit smoking in 1970s she was a less than 1 pack a day smoker for 5 years. She has 1 cat in the house, no birds. 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 No known exposure to inhaled irritants such as asbestos, dust, silica.< /p><p>
</p><p>Family history: No lung disease in the family, no lung cancer, tuberculosis or asthma</p><p>
</p> Review of Systems ? Notes: <p>As above
</p> Physical Exam ? Notes: <p>
</p><p>Elderly woman in no acute distress</p><div>
</di v><div>Chest: Bilateral air entry with clear breath sounds</div><div>< br></div><div>No wheezing, crackles or crepitations, no prolonged e xpiratory phase even on forceful exhalation</div><div>
</d iv><div>Heart: S1-S2 normal
</div><div>
</d iv><div>Extremities: NO clubbing, no edema or cyanosis</div><div>
</div ><div>Neuro: Alert Oriented ?3</div>
--- OUTSIDE RECORDS SUMMARY | 2020-09-28 09:17 | XMS_ITS ---
:1940 Author Care Team Providers Name Role Phone MIRANDA DURANT MD Bindery Manager [phone] JESICA LEIVA APRN Primary Care Provider [phone] Allergies Code Code System Name Reaction Severity Status Onset Tussionex ? ? Active ? Medications Name Status Start Date Stop Date ? ? amlodipine 10 mg-atorvastatin 10 mg tablet Active ? Not available Take 1 tablet every day by oral route. Bevespi Aerosphere 9 mcg-4.8 mcg HFA aerosol inhaler Completed ? 02/05/2020 Inhale 2 puffs twice a day by inhalation route. dofetilide 125 mcg capsule Active ? Not a vailable Take 1 capsule twice a day by oral route. Eliquis 5 mg tablet Active ? Not availabl e Take 1 tablet twice a day by oral route. ferrous sulfate 325 mg (65 mg iron) tablet Active ? Not available Take 1 tablet every day by oral route. fluoxetine 20 mg capsule Active ? Not felicia ilable Take 1 capsule every day by oral route. gabapentin 300 mg capsule Active ? Not av ailable Take 1 capsule 3 times a day by oral route. magnesium Completed ? 01/13/2019 magnesium gluconate 27 mg magnesium (500 mg) tablet Active ? Not available Start with 1 tablet in evening. If leg cramps persist and NO loose stools, may increase to 1 tablet twice daily (day and night) metformin 500 mg tablet Active ? Not avai lable Take 1 tablet every day by oral route. metoprolol tartrate 50 mg tablet Completed ? 01/13/2019 Take 1 tablet twice a day by oral route. modafinil 100 mg tablet Active ? Not avai lable Take 1/2 to 1 tablet daily as needed for daytime sleepiness multivitamin Active ? Not available Norvasc 10 mg tablet Active ? Not availab le Take 1 tablet every day by oral route. pravastatin 40 mg tablet Active ? Not felicia ilable Take 1 tablet every day by oral route. prednisone 5 mg tablet Active ? Not avail able Take 1 tablet every day by oral route. ProAir HFA 90 mcg/actuation aerosol inhaler Active ? Not available Inhale 2 puffs every 4 hours by inhalation route as needed. ramelteon 8 mg tablet Active ? Not availa ble TAKE ONE TABLET BY MOUTH AT BEDTIME ropinirole 1 mg tablet Active ? Not avail able Take 2 tabs in early afternoon and 2 tabs at bedtime for restle ss legs ropinirole 2 mg tablet Active ? Not avail able Take 1 tablet 3 times a day by oral route as needed for 90 days . Trelegy Ellipta 100 mcg-62.5 mcg-25 mcg powder for inhalation Ac tive ? Not available Inhale 1 puff every day by inhalation route. valacyclovir 1 gram tablet Active ? Not a vailable Take 1 tablet every 12 hours by oral route. Vitamin D Active ? Not available Vitamin D3 50 mcg (2,000 unit) tablet Completed ? 11/09/2019 Take 1 tablet every day by oral route. vitamin E Active ? Not available Problems Name Status Onset Date Source ? [...] of Respiratory Disease Active ? H istory Disorder of Lung Unknown ? History Procedure by Method Unknown ? History Procedures None recorded. Results Lab Results Date Name Specimen Result Interpretation Description Value Range Status Address ? 08/15/2017 Venipuncture BLD ? Venpn* ? ? Final [facility] Hospital L [facility] (Internal) : [address] 08/15/2017 Ferritin, Serum S ? Ferr 49 11-2 Sayda l [facility] or Plasma NG/mL 64 Hospita l Lab NG/m (Internal) : L [address] 08/15/2017 Thyroid Redig, S ? Tsh 2.32 0.47 Fin al [place] Serum u[IU] -4.6 Hospital L ab /mL 8 (Internal) : u[IU [address] , ]/mL [place] 08/15/2017 Vitamin D, S ? 25-Cadet <4.0 ? Final [facility] 25-Hydroxy, xy D2 NG/mL Hospi myriam Lab Total, Serum (Int ernal): [address] ? ? S ? 25-Cadet 41 ? Final [facility] ountry xy D3 NG/mL Hospital L ab (Internal) : [address] ? ? S ? 25-Cadet 41 ? Final [facility] ountry xy D NG/mL Hospital L ab Total (Internal) : [address] Past Encounters 08/26/2020 Chronic Lung Disease; Obstructive Sleep Apnea Syndrome; Periodic Limb Movement Disorder Naomie Mo MD: [address] [place] [address] Dr hern[address] [phone], Ph. 02/05/2020 Dyspnea; Chronic Lung Disease; Obstructi ve Sleep Apnea Syndrome Naomie Mo MD: [address] [place] [address] Dr hernandez [address] [phone], Ph. 01/01/2020 Chronic Lung Disease; Obstructive Sleep Apnea Syndrome Naomie Mo MD: [address] [place] [address] Dr hernandez [address] [phone], Ph. 11/09/2019 Restless Legs; Hypersomnia; Obstructive Sleep Apnea Syndrome; Insomnia; Atrial Fibrillation; Periodic Limb Movement Disorder; Cramp in Lower Limb Associated with Sleep; Hypertensive Disorder; Obesity; Vitamin D Deficiency Bandar Keller MD, Board Certified Sleep Ph ysician: [address] [place] [phone], Ph. Social History Tobacco Smoking Status Former Smoker Notes: 16, /2 ppd. quit 1968 Vaccine List Vaccine Type influenza, injectable, quadrivalent 06/15/2018 pneumococcal conjugate PCV 13 09/18/2016 pneumococcal polysaccharide PPV23 11/01/2010 Tdap 07/30/2012 zoster recombinant 08/05/2017 Plan of Care Patient Instructions 1. Your Obstructive Sleep Apnea is being well treated on your cpap machine. No pressure change needed today. Excellent work on using your machine nightly, your usage has decreased a bit due to shoulder/hip pains and I hope that will get better. 2. I am requesting [facility] to try you with a smaller headgear for the same mask (it's called the For Her headgear, purple color). Your mask is AirFIt F20 small cushion size. You currently have the standard size headgear in blue color. 2. We will increase the Ropinirole 2mg t o three times a day. You can take it early in afternoon, in evening and at bedtime. Remember it will be easier to treat the restless legs if the medication is in your system before the onset of the leg movements so you dont have to play catch up. You do have low iron in your body and ta florencio Ferrous Sulfate 325mg which is recommended by Jo. I suggest adding Vitamin C 250 to 500mg when you take the iron, which will help improve how well your body can absorb it. 3. For your low magnesium level of 1.6, please do follow Jo's recommendation to take three times a day of your magnesium. If your next blood work still shows low magnesium, consider using this produc t which in at least one research study w as shown to have much higher bioavailability when compared to many other magnesium products including Slow Mag. Doctor's Best High Absorption Magnesium 100mg capsules - take 3 capsules three times daily. One reason your magnesium may not be goi ng up could be poor absorption, and this product may help with that. Also you can look for Magnesium Glycinate 400mg three times daily. 4. For your insomnia, continue Rozerem 8 mg at bedtime. You find this helps you go back to sleep. 5. You are still using Modafinil 100mg ( keep you wake medication) for your long distance driving. If you only need it for 2 hours and it's later in the day, you can use 1/2 tab (50mg). Otherwise you fel t 100mg (1 tab) was very effective for a bout 4 hours of driving, which gets you to [place]. Be careful with taking the medication wh en it's close to or less than 8 hours before your bedtime, because it can interfere with your sleep. 6. Keep working on and monitoring your b lood pressure at home and let your primary care provider know if it continues to be high! Your blood pressure appears much better since you got put on Amlodipine. Follow up in February 2020 Reminders Provider Appointments None recorded. ? ? Lab None recorded. ? ? Referral None recorded. ? ? Procedures None recorded. ? ? Surgeries None recorded. ? ? Imaging None recorded. ? ? Vitals 08/26/2020 09:00AM Office 15 Height Weight BMI Blood Pressure 151.13 cm 76 kg 33.3 kg/m2 142/82 mm[Hg] 02/05/2020 09:30AM Office 15 Height Weight BMI 151.13 cm 80 kg 35 kg/m2 01/01/2020 09:30AM Office 15 Height Weight BMI Blood Pressure 151.13 cm 80 kg 35 kg/m2 148/75 mm[Hg] 11/09/2019 03:15PM Office 30 Height Weight BMI Blood Pressure 151.13 cm 80.51 kg 35.3 kg/m2 132/70 mm[Hg] 03/17/2019 10:30AM Office 30 Height Weight BMI Blood Pressure 151.13 cm 82.1 kg 35.9 kg/m2 102/70 mm[Hg] 01/13/2019 09:30AM Office 30 Height Weight BMI Blood Pressure 151.13 cm 85.28 kg 37.3 kg/m2 160/72 mm[Hg] 06/10/2018 11:30AM Office 30 Height Weight BMI Blood Pressure 151.13 cm 77.56 kg 34 kg/m2 183/76 mm[Hg] 04/16/2018 12:30PM Office 15 Height Weight BMI Blood Pressure 151.13 cm 77.56 kg 34 kg/m2 179/81 mm[Hg] 11/21/2017 Height Weight Blood Pressure 151.13 cm 75.3 kg 150/98 mm[Hg] 08/15/2017 Height Weight Blood Pressure 151.13 cm 76.29 kg 110/70 mm[Hg]
[2020-09-28 22:26] LABS: Abs Immature Grans 0.02 10^3/uL (0.0-0.06); Absolute Basophil Count 0.02 10^3/uL (0.0-0.2); Absolute Eosinophil Count 0.17 10^3/uL (0.0-0.7); Absolute Lymphocyte Count 1.47 10^3/uL (1.2-3.4); Absolute Neutrophil Count 3.78 10^3/uL (1.2-6.7); Basophils % 0.3; Eosinophils % 2.9; HCT 31.8 % (36.0-46.0); HGB 10.1 g/dL (11.2-15.7); Immature Grans % 0.3; Lymphocytes % 25.1; MCH 27.3 pg (27.0-33.0); MCHC 31.8 % (32.0-36.0); MCV 85.9 fL (80-95); MPV 9.3 fL (8.0-11.0); Monocytes % 6.8; Neutrophils % 64.6; Nucleated RBC 0 %; Platelet Count 368 10^3/uL (130-400); RDW 13.3 % (11.7-14.6); WBC 5.86 10^3/uL (4.4-10.8)
[2020-09-28 22:57] LABS: Iron 41 ug/dL (50-170); Total Iron Binding Capacity 402 ug/dL (250-450); Transferrin Sat 10 % (15-50)
[2020-09-28 23:09] LABS: Ferritin 20 ng/mL (8-252)
== END 2020-09-28 09:33 ==
LOC: NCHCN 09:13
PROVIDERS: PCP Nurse Practitioner Family
DX: D50.9 Iron deficiency anemia, unspecified (principal); K52.832 Lymphocytic colitis
CPT/HCPCS: 82728; 83540; 83550; 85025

== ENCOUNTER 2020-11-15 10:55 | Outpatient (REF) | payer OTHER, SELFPAY ==
[2020-11-15 13:41] LABS: Abs Immature Grans 0.02 10^3/uL (0.0-0.06); Absolute Basophil Count 0.03 10^3/uL (0.0-0.2); Absolute Lymphocyte Count 1.28 10^3/uL (1.2-3.4); Absolute Monocyte Count 0.39 10^3/uL (0.1-0.8); Absolute Neutrophil Count 4.91 10^3/uL (1.2-6.7); Basophils % 0.4; Eosinophils % 2.9; HCT 24.6 % (36.0-46.0); HGB 7.8 g/dL (11.2-15.7); Immature Grans % 0.3; Lymphocytes % 18.7; MCH 25.5 pg (27.0-33.0); MCHC 31.7 % (32.0-36.0); MCV 80.4 fL (80-95); MPV 9.3 fL (8.0-11.0); Monocytes % 5.7; Nucleated RBC 0 %; Platelet Count 373 10^3/uL (130-400); RBC 3.06 10^6/uL (3.93-5.22); RDW-SD 41.3 fL; WBC 6.83 10^3/uL (4.4-10.8)
[2020-11-15 14:11] LABS: Iron 13 ug/dL (50-170); Total Iron Binding Capacity 464 ug/dL (250-450); Transferrin Sat 3 % (15-50)
[2020-11-15 14:19] LABS: Anion Gap 10.6 mmol/L (3-11); BUN 29 mg/dL (7-18); CO2 24.4 mmol/L (21.0-32.0); CREATININE 1.1 mg/dL (0.55-1.02); Calcium 8.9 mg/dL (8.5-10.1); Chloride 103 mmol/L (98-107); Estimated GFR 47.79 (mL/min/1.73m2); Ferritin 13 ng/mL (8-252); Glucose 138 mg/dL (74-106); Magnesium 1.8 mg/dL (1.8-2.4); Potassium 4.2 mmol/L (3.5-5.1); Sodium 138 mmol/L (136-145); TSH (W/Ref FT4) 2.81 uIU/mL (0.36-3.74); Vitamin B12 513 pg/mL (193-986)
== END 2020-11-15 10:56 | disposition home or self-care (01) ==
LOC: NCHCN 10:55
PROVIDERS: PCP Nurse Practitioner Family; Visit Provider Nurse Practitioner Family
DX: E11.9 Type 2 diabetes mellitus without complications (principal); D64.9 Anemia, unspecified; I48.91 Unspecified atrial fibrillation; E66.8 Other obesity; K21.9 Gastro-esophageal reflux disease without esophagitis; R41.3 Other amnesia; M35.3 Polymyalgia rheumatica; F32.9 Major depressive disorder, single episode, unspecified
CPT/HCPCS: 80048; 82306; 82607; 82728; 83540; 83550; 83735; 84443; 85025

== ENCOUNTER 2020-11-16 13:34 | Outpatient (REF) | payer OTHER, SELFPAY ==
[2020-11-16 13:22] LABS: Abs Immature Grans 0.01 10^3/uL (0.0-0.06); Absolute Basophil Count 0.03 10^3/uL (0.0-0.2); Absolute Eosinophil Count 0.13 10^3/uL (0.0-0.7); Absolute Lymphocyte Count 1.24 10^3/uL (1.2-3.4); Absolute Neutrophil Count 4.26 10^3/uL (1.2-6.7); Basophils % 0.5; Eosinophils % 2.1; HCT 25.1 % (36.0-46.0); HGB 7.8 g/dL (11.2-15.7); Immature Grans % 0.2; Lymphocytes % 20.4; MCH 24.8 pg (27.0-33.0); MCHC 31.1 % (32.0-36.0); MCV 79.7 fL (80-95); MPV 9.4 fL (8.0-11.0); Monocytes % 6.6; Neutrophils % 70.2; Nucleated RBC 0 %; Platelet Count 401 10^3/uL (130-400); RBC 3.15 10^6/uL (3.93-5.22); RDW-SD 40.4 fL; Reticulocyte 1.8 % (0.5-2.4); WBC 6.07 10^3/uL (4.4-10.8)
[2020-11-16 14:05] LABS: Diff Comment RBC Morph Reviewed; Hypochromasia 2+; Microcytosis 1+; Polychromasia Present
[2020-11-16 14:06] LABS: Poikilocytes 1+
[2020-11-16 17:57] LABS: LDH 208 U/L (81-234)
[2020-11-17 09:28] LABS: Haptoglobin 245 mg/dL (32-197)
== END 2020-11-16 13:35 | disposition home or self-care (01) ==
LOC: NCHCN 13:34
PROVIDERS: PCP Nurse Practitioner Family; Visit Provider Nurse Practitioner Family
DX: D64.9 Anemia, unspecified (principal)
CPT/HCPCS: 83010; 83615; 85025; 85045

== ENCOUNTER 2020-11-30 02:13 | Outpatient (RCR) | payer OTHER, SELFPAY ==
[2020-11-30] MEDS: FERRIC CARBOXYMALTOSE 750 MG in Normal Saline 250 ML 1060 MG IVPB (09:03)
[2020-11-30] MEDS: Normal Saline Flush 10 ML SYR IVP (09:09)
== END 2020-12-04 23:59 | disposition home or self-care (01) ==
LOC: INF 02:13
PROVIDERS: PCP Nurse Practitioner Family; Visit Provider Internal Medicine
DX: D64.9 Anemia, unspecified (principal)
CPT/HCPCS: 96365

== ENCOUNTER 2020-12-07 09:30 | Outpatient (RCR) | payer OTHER, SELFPAY ==
[2020-12-07] MEDS: FERRIC CARBOXYMALTOSE 750 MG in Normal Saline 250 ML 1060 MG IVPB (10:30)
[2020-12-07] MEDS: Normal Saline Flush 10 ML SYR IVP (10:33)
[2020-12-07 10:36] LABS: Abs Immature Grans 0.04 10^3/uL (0.0-0.06); Absolute Basophil Count 0.03 10^3/uL (0.0-0.2); Absolute Eosinophil Count 0.27 10^3/uL (0.0-0.7); Absolute Lymphocyte Count 1.17 10^3/uL (1.2-3.4); Absolute Neutrophil Count 5.63 10^3/uL (1.2-6.7); Basophils % 0.4; Eosinophils % 3.5; HCT 25.4 % (36.0-46.0); HGB 7.7 g/dL (11.2-15.7); Immature Grans % 0.5; Lymphocytes % 15.3; MCHC 30.3 % (32.0-36.0); MCV 82.5 fL (80-95); MPV 9.4 fL (8.0-11.0); Monocytes % 6.5; Neutrophils % 73.8; Nucleated RBC 0 %; Platelet Count 362 10^3/uL (130-400); RBC 3.08 10^6/uL (3.93-5.22); RDW 19.7 % (11.7-14.6); RDW-SD 43.4 fL; WBC 7.64 10^3/uL (4.4-10.8)
[2020-12-07 10:51] LABS: Anisocytosis 2+; Diff Comment RBC Morph Reviewed; Hypochromasia 2+; Microcytosis 2+; Polychromasia Present
[2020-12-07 10:52] LABS: Poikilocytes 2+
[2020-12-07 10:59] LABS: Ferritin 610 ng/mL (8-252); Iron 70 ug/dL (50-170)
== END 2021-01-04 23:59 | disposition home or self-care (01) ==
LOC: INF 09:30
PROVIDERS: PCP Nurse Practitioner Family; Visit Provider Internal Medicine
DX: D64.9 Anemia, unspecified (principal)
CPT/HCPCS: 36415; 96365; 82728; 83540; 85025

== ENCOUNTER 2020-12-13 14:18 | Outpatient (REF) | payer OTHER, SELFPAY ==
[2020-12-13 15:25] LABS: Abs Immature Grans 0.04 10^3/uL (0.0-0.06); Absolute Basophil Count 0.03 10^3/uL (0.0-0.2); Absolute Eosinophil Count 0.36 10^3/uL (0.0-0.7); Absolute Lymphocyte Count 1.19 10^3/uL (1.2-3.4); Absolute Monocyte Count 0.38 10^3/uL (0.1-0.8); Absolute Neutrophil Count 3.76 10^3/uL (1.2-6.7); Basophils % 0.5; Eosinophils % 6.3; HCT 27.4 % (36.0-46.0); HGB 8.7 g/dL (11.2-15.7); Immature Grans % 0.7; Lymphocytes % 20.7; MCH 26.4 pg (27.0-33.0); MCHC 31.8 % (32.0-36.0); MCV 83.3 fL (80-95); MPV 9.7 fL (8.0-11.0); Monocytes % 6.6; Neutrophils % 65.2; Nucleated RBC 0 %; Platelet Count 326 10^3/uL (130-400); RBC 3.29 10^6/uL (3.93-5.22); RDW 23.2 % (11.7-14.6); RDW-SD 67.2 fL; WBC 5.76 10^3/uL (4.4-10.8)
[2020-12-13 15:42] LABS: Anisocytosis 2+; Diff Comment RBC Morph Reviewed; Hypochromasia 2+
[2020-12-13 15:43] LABS: Microcytosis 1+; Poikilocytes 2+
[2020-12-13 16:48] LABS: Iron 83 ug/dL (50-170); Total Iron Binding Capacity 336 ug/dL (250-450); Transferrin Sat 25 % (15-50)
== END 2020-12-13 14:19 | disposition home or self-care (01) ==
LOC: NCHCN 14:18
PROVIDERS: PCP Nurse Practitioner Family; Visit Provider Nurse Practitioner Family
DX: D64.9 Anemia, unspecified (principal)
CPT/HCPCS: 83540; 83550; 85025

== ENCOUNTER → 2021-01-02 09:41 | Outpatient (BNVA) | payer OTHER, SELFPAY | PROVIDERS: PCP Nurse Practitioner Family; Referring Provider Nurse Practitioner Family; Visit Provider Psychiatry & Neurology Neurology | DX: R41.3 Other amnesia (principal); R25.1 Tremor, unspecified; G62.9 Polyneuropathy, unspecified; I10 Essential (primary) hypertension; E78.5 Hyperlipidemia, unspecified; G47.33 Obstructive sleep apnea (adult) (pediatric); Z99.89 Dependence on other enabling machines and devices; J44.9 Chronic obstructive pulmonary disease, unspecified | CPT/HCPCS: 99215; G2212 ==

== ENCOUNTER → 2021-01-12 15:24 | Outpatient (BNVA) | payer OTHER, SELFPAY | PROVIDERS: PCP Nurse Practitioner Family; Referring Provider Nurse Practitioner Family; Visit Provider Surgery | DX: K21.9 Gastro-esophageal reflux disease without esophagitis (principal); K52.9 Noninfective gastroenteritis and colitis, unspecified; D50.0 Iron deficiency anemia secondary to blood loss (chronic); I10 Essential (primary) hypertension; E11.9 Type 2 diabetes mellitus without complications | CPT/HCPCS: 99213; 99214 ==

== ENCOUNTER 2021-01-30 02:32 | Outpatient (CLI) | payer OTHER, SELFPAY ==
--- NOTE | 2021-01-30 12:10 | DI.MRI_ITS ---
EXAM: MR BRAIN WO CLINICAL HISTORY: memory loss,IMPAIRMENT,R41.3 TECHNIQUE: Multiplanar multisequence MRI of the brain was performed. COMPARISON: No exams were available for comparison FINDINGS: CEREBRAL PARENCHYMA: There is no evidence of intracranial hemorrhage, mass effect, or shift of midline structures. There are no extra-axial fluid collections. Ventricles are not enlarged or shifted. Cavum septum pellucid um incidentally noted. There is no significant focal signal abnormality in the cerebellar hemispheres. Some symmetrical inc reased signal is seen in both sides of the cate. No abnormal signal in the midbrain and thalami. There are multiple foci of subcentimeter signal abnormality in the Jayleen in supra ventricular white ma tter consistent with chronic ischemic changes. There is no significant focal signal abnormality evident on diffusion imaging to suggest acute ischem ic event. PITUITARY GLAND: No mass nor parasellar abnormality. No obvious abnormality in the cavernous sinuses. FLOW VOIDS: The expected flow void are noted. No evidence of obvious aneurysm nor obvious vascular ma lformation. PARANASAL SINUSES: The visualized paranasal sinuses appear unremarkable. No obvious finding ORBITS: No obvious findings. IMPRESSION: There is abundant periventricular signal abnormality consistent with chronic ischemic changes. No ev idence of acute infarction. No evidence of intracranial hemorrhage. Similar appearing increased signal in both sides of the cate, most probably also ischemic sequelae. Also no abnormal signal at this location on diffusion imaging to suggest acute ischemic event. DATA REPOSITORY:
== END 2021-01-30 02:52 ==
PROVIDERS: PCP Nurse Practitioner Family; Visit Provider Psychiatry & Neurology Neurology
DX: R41.3 Other amnesia (principal); I67.82 Cerebral ischemia
CPT/HCPCS: 70551

== ENCOUNTER 2021-02-06 02:09 | Outpatient (CLI) | payer OTHER, SELFPAY ==
[2021-02-06 10:17] LABS: Source Nasal/Nares
[2021-02-06 12:50] LABS: COVID-19 PCR Negative (Negative)
== END 2021-02-06 02:10 | disposition home or self-care (01) ==
LOC: LBO 02:09
PROVIDERS: PCP Nurse Practitioner Family; Visit Provider Surgery
DX: Z20.822 Contact with and (suspected) exposure to COVID-19 (principal); Z01.818 Encounter for other preprocedural examination
CPT/HCPCS: 87635

== ENCOUNTER 2021-02-07 09:46 | Day surgery (SDC) | payer OTHER, SELFPAY ==
[2021-02-07] VITALS (8 sets, daily range): BP systolic 133–157; BP diastolic 56–78; PULSE 71–85; RESP 15–20; TEMP 36–36.5; O2SAT 95–100; BMI 32.4
--- NOTE | 2021-02-07 08:49 | ANES.PREOP_ITS ---
General Info Date of Service Date Performed: 02/07/21 Height: 5 ft Weight: 75.41 kg Body Mass Index (BMI): 32.4 Surgical Procedure: Operation Date: 02/07/21 11:50 Proposed Procedures Side Surgeon p Colonoscopy/Gastroscopy Anabel Doty, Meds Allergies and Home Medications Allergies Allergy/AdvReac Type Severity Reaction Status Date / Time chlorpheniramine polistirex Adv[facility]ac [facility] hydrocodone polistirex AdvReac causes me Verified 02/07/21 10:25 [facility] to be high Home Medication Medication Instructions Recorded Multivitamin 1 tab PO DAILY 06/23/14 metformin 500 mg PO DAILY 06/23/14 pravastatin 40 mg PO DAILY tab-cap 06/23/14 dofetilide 125 mcg capsule 125 mcg PO Q12H 90 Days #180 cap 05/15/19 albuterol sulfate 90 mcg/actuation 2 puff IH Q6H PRN 08/04/19 aerosol inhaler apixaban 5 mg tablet 5 mg PO BID 03/22/20 amlodipine 5 mg tablet 5 mg PO DAILY tab 03/23/20 metoprolol tartrate 50 mg tablet 50 mg PO BID 03/23/20 Trelegy Ellipta 1 inh INHALATION QAM 04/26/20 budesonide 3 mg 9 mg PO DAILY #90 cap 05/11/20 capsule,delayed,extended release pantoprazole 40 mg tablet,delayed 40 mg PO DAILY #30 tab 06/12/20 release Lactobacillus acidophilus 100 mg PO DAILY 11/28/20 ferrous sulfate 220 mg (44 mg 220 mg PO DAILY 11/28/20 iron)/5 mL oral elixir fluoxetine 20 mg capsule 60 mg PO DAILY tab-cap 11/28/20 cholecalciferol (vitamin D3) 25 25 mcg PO DAILY 01/02/21 mcg (1,000 unit) capsule magnesium oxide 400 mg PO BID 01/02/21 modafinil 100 mg tablet 50 mg PO DAILY PRN tab 01/02/21 ropinirole 1 mg tablet 2 mg PO TID tab 01/02/21 bisacodyl 5 mg tablet,delayed 5 mg PO ONCE #4 tab 01/20/21 release polyethylene glycol 3350 17 17 g PO ONCE #238 g 01/20/21 gram/dose oral powder Current Visit Medications: Current Medications Generic Name Dose Route Start Last Admin Trade Name Freq PRN Reason Stop Dose Admin Ringer's Solution 1,000 mls @ 80 mls/hr 02/07/21 06:00 IV 03/08/21 23:59 [facility] Iron Sucrose 200 mg/ Sodium 110 mls @ 440 mls/hr 02/07/21 06:00 Chloride IVPB 02/07/21 23:59 TODAY [facility] IV Miscellaneous Supplies 1 each 02/07/21 06:00 Iv Access IV 03/08/21 23:59 DIRECTED EUGENE Sodium Chloride 0 ml 02/07/21 06:00 Normal Saline Flush 10 Ml Syr IV 03/08/21 23:59 PRN PRN Sodium Chloride 0 ml 02/07/21 06:00 Normal Saline 10 Ml Vial IJ 03/08/21 23:59 DIRECTED PRN Sterile Water 0 ml 02/07/21 06:00 Water,Injection,Sterile 10 Ml Vial IJ 03/08/21 23:59 DIRECTED PRN PFSH Active Problems Active Problems: Problem Status Onset Code Peripheral neuropathy G62.9 Occasional tremors R25.1 Memory impairment R41.3 Collagenous colitis K52.831 Aortic regurgitation I35.1 Polymyalgia rheumatica M35.3 Chronic GERD K21.9 Preop testing Z01.818 Diarrhea R19.7 Restless legs syndrome (RLS) G25.81 Iron deficiency anemia due to chronic blood loss D50.0 Adenomatous polyp of ascending colon D12.2 Colon cancer C18.9 HTN (hypertension) I10 Diabetes E11.9 Atrial fibrillation I48.91 Sensorineural hearing loss, bilateral 10/13/13 H90.3 Right rotator cuff tear M75.101 Tendonitis of left rotator cuff M75.82 Polyarthralgia M25.50 Medical History Medical History Adenomatous polyp of ascending colon Anemia Atrial fibrillation F/U with Dr. Mendez regularly at [place], last seen 03/21/20. Per pt. everything stable Bilateral hip pain Bilateral knee pain Chronic anticoagulation Chronic GERD Chronic lung disease Colon cancer 1996, treated with chemotherapy with no resultant issues. Depression Diabetes Elevated antinuclear antibody (MARLON) level Female stress incontinence GERD (gastroesophageal reflux disease) Hearing loss History of acute respiratory distress syndrome (ARDS) 2008 History of trigger finger bilateral HTN (hypertension) Hyperlipidemia Hypokalemia Hypomagnesemia Hyponatremia Insomnia Iron deficiency anemia Lymphocytic colitis Memory impairment Obesity Occasional tremors Periodic limb movement disorder (PLMD) Peripheral neuropathy Polyarthralgia Pulmonary hypertension Restless legs syndrome (RLS) Right rotator cuff tear Injection: / Sensorineural hearing loss, bilateral (10/13/13) Sleep apnea uses cpap Tendonitis of left rotator cuff Injection: 02/10/19 Surgical History Surgical History (Updated 02/07/21 @ 10:24 by Jeimy Florence) Hx of appendectomy Hx of section Hx of colonoscopy (~09/24/19) Hx of repair of right rotator cuff Hx of tonsillectomy Tobacco Smoking/Tobacco Use Status: Former Tobacco Use Alcohol Alcohol Intake: current Alcohol intake frequency: a few times a month Alcohol type: wine Substance Use Substance use: Never Substance use type: does not use Vital Signs and Lab Results Vital Signs Most Recent Vital Signs in EMR: Temp Pulse Resp BP Pulse Ox 36.1 C L 71 16 140/78 99 02/07/21 10:38 02/07/21 10:38 02/07/21 10:38 02/07/21 10:38 02/07/21 10:38 Lab Results Blood Type / Crossmatch: No Data to Display Complete Blood Count: White Blood Count 5.76 10^3/uL (4.4-10.8) 12/13/20 08:11 12/13/20 Red Blood Count 3.29 10^6/uL (3.93-5.22) L 12/13/20 08:11 12/13/20 Hemoglobin 8.7 g/dL (11.2-15.7) L 12/13/20 08:11 12/13/20 Hematocrit 27.4 % (36.0-46.0) L 12/13/20 08:11 12/13/20 Platelet Count 326 10^3/uL (130-400) 12/13/20 08:11 12/13/20 Complete Metabolic Panel: Sodium Level 138 mmol/L (136-145) 11/15/20 09:10 11/15/20 Potassium Level 4.2 mmol/L (3.5-5.1) 11/15/20 09:10 11/15/20 Chloride Level 103 mmol/L (98-107) 11/15/20 09:10 11/15/20 Carbon Dioxide Level 24.4 mmol/L (21.0-32.0) 11/15/20 09:10 11/15/20 Blood Urea Nitrogen 29 mg/dL (7-18) H 11/15/20 09:10 11/15/20 Creatinine 1.1 mg/dL (0.55-1.02) H 11/15/20 09:10 11/15/20 Magnesium Level 1.8 mg/dL (1.8-2.4) 11/15/20 09:10 11/15/20 Calcium Level 8.9 mg/dL (8.5-10.1) 11/15/20 09:10 11/15/20 Albumin 3.8 g/dL (3.4-5.0) 04/04/20 10:10 04/04/20 Glucose Level 138 mg/dL (74-106) H 11/15/20 09:10 11/15/20 Hemoglobin A1c 6.5 % (3.8-5.6) H 01/29/20 12:05 01/29/20 Liver Function Panel: Alanine Aminotransferase (ALT/SGPT) 33 U/L (14-59) 04/04/20 10:10 04/04/20 Aspartate Amino Transf (AST/SGOT) 29 U/L (15-37) 04/04/20 10:10 04/04/20 Coagulation Panel: INR International Normalized Ratio 1.0 (1.0-3.5) 06/28/17 08:20 06/28/17 Prothrombin Time 10.2 sec (9.3-11.4) 06/28/17 08:20 06/28/17 Cardiac Panel: Troponin I < 0.02 ng/mL (0.00-0.06) 11/03/17 09:25 11/03/17 NT-Wws-D-Type Natriuretic Peptide 493 pg/mL (<300) H 01/29/20 12:05 01/29/20 Arterial Blood Gas: No Data to Display Venous Blood Gas: No Data to Display Pancreas Panel: Lipase 122 U/L (73-393) 11/03/17 09:25 11/03/17 Thyroid Panel: Thyroid Stimulating Hormone (TSH) 2.81 uIU/mL (0.36-3.74) 11/15/20 09:10 11/15/20 Infectious Disease: Coronavirus (COVID-19)(PCR) Negative (Negative) 02/06/21 08:24 02/06/21 Coronavirus 2019 Source Nasal/nares 02/06/21 08:24 02/06/21 Blood Cultures: No Data to Display Toxicology Panel: No Data to Display Panel: No Data to Display Imaging and Studies Imaging and Studies Stress Test Summary:: 11/24: LVEF 49%, normal perfusion. Echocardiogram Summary:: 11/05/17: LVEF 55-60%, AoV mild to moderate regurgitation, mitral valve mild-moderate MR, moderate TR, PAS 45 mmHg Pulmonary Function Test Summary:: 2019: Mild restrictive lung disease associated with mild diffusion defect. Anesthesia Assessment and Plan Anesthesia History Personal History: No History of Anesthesia Complications Family History: No Family History of Anesthesia Complications Exercise Tolerance Exercise Tolerance: Metabolic Equivalents>4 Cardiac & Pulmonary Exam Cardiac Exam: Normal S1/S2 Heart Sounds Pulmonary Exam: Clear Bilateral Breath Sounds Airway Exam Known Difficult Airway: No Mallampati Class: 3 Mouth Opening: Normal (> 3cm) Thyromental Distance: Greater than 3 cm Neck Range of Motion: Limited ROM Neck Circumference: Normal Teeth Condition: Normal Dentition ASA Classification ASA Score: ASA 3 ASA Emergency: Yes NPO Status NPO Status: NPO Clears >2 hours, Solids >8 hours Anesthesia Plan Anesthesia Technique: General Anesthesia Airway Planned: Endotracheal Tube Monitors Used: Standard Monitors Preoperative Comments:: Plan for GAETT with paralysis. Multiple endos which have required GAETT due to significant movement during procedure and multiple polyps previous LMA 3 and glide 3 grade 1. BS 121 today.
[2021-02-07] MEDS: Lactated Ringers 1,000 ML 80 ML IV (10:55)
--- NOTE | 2021-02-07 12:16 | STOM_PTH ---
PATIENT: Alysha Kay LOC: [facility] U#:[id number] AGE/SX: 81/F ROOM: RE02/07/[address]: Anabel Doty : 1940 BED: DIS: 02/07/2021 SPEC #: [id number] RECD: 02/07/21 16:33 STATUS: KANNAN REJennifer #: [id number] QAMAR: 02/07/21 12:[address]: Anabel Doty DEPT: Surgical Specimen RECD BY: Marli Yusuf ENTERED: 02/07/21 16:51 SP TYPE: STOMACH OTHR DR: Tere Sheffield Tissues: 1 - BIOPSY BOWEL 2 - STOMACH BIOPSY 3 - STOMACH BIOPSY 4 - ESOPHAGUS BIOPSY 5 - ESOPHAGUS BIOPSY 6 - BIOPSY BOWEL Procedures: GROSS AND MICRO LEVEL 4 Comments: [id number]
--- NOTE | 2021-02-07 13:21 | W.ANESPOSTOP ---
Postoperative Evaluation Date, Time and Location Date Performed: 02/07/21 Time Performed: 13:22 Patient Location: PACU Vital Signs Most Recent Imported Vital Signs: Most Recent Vital Signs Temp Pulse Resp BP Pulse Ox 36.2 C L 85 20 135/64 98 02/07/21 13:12 02/07/21 13:12 02/07/21 13:12 02/07/21 13:12 02/07/21 13:12 Pain Score Most Recent Pain Score: Most Recent Pain Score Pain Level 0 02/07/21 13:12 Assessment Mental Status: Awake (Alert & Oriented to Patient Baseline) Airway and Respiratory Function: Patent airway with normal (patient baseline) respiratory exam Cardiovascular Function: Hemodynamically Stable Hydration Status: Adequately Hydrated Nausea & Vomiting: No Nausea or Vomiting Pain: Pt. Denies Any Pain Peripheral Nerve Block: Patient did not receive a nerve block
--- NOTE | 2021-02-07 13:58 | PDOC.DSDIS_ITS ---
Discharge Plan Disposition Patient Disposition: HOME Condition: Good Discharge Details Reason For Visit: stomach/colon scope Attending Provider: Anabel Doty Primary Care Provider: Tere Sheffield Home Meds and New Rx's Prescriptions: Continued magnesium oxide 400 mg magnesium tablet 400 mg PO BID RF: 0 cholecalciferol (vitamin D3) 25 mcg (1,000 unit) capsule 25 mcg PO DAILY RF: 0 albuterol sulfate [ProAir HFA] 90 mcg/actuation HFA aerosol inhaler 2 puff IH Q6H PRNRF: 0 metoprolol tartrate [Lopressor] 50 mg tablet 50 mg PO BID RF: 0 amlodipine [Norvasc] 5 mg tablet 5 mg PO DAILY RF: 0 budesonide [Entocort EC] 3 mg capsule,delayed,extend.release 9 mg PO DAILY Qty: 90 RF: 6 pantoprazole [Protonix] 40 mg tablet,delayed release (DR/EC) 40 mg PO DAILY Qty: 30 RF: 12 metformin 500 MG tablet 500 mg PO DAILY RF: 0 pravastatin 40 MG tablet 40 mg PO DAILY RF: 0 multivitamin 1 tab PO DAILY RF: 0 dofetilide 125 mcg capsule 125 mcg PO Q12H 90 Days Qty: 180 RF: 3 fluoxetine 20 mg capsule 60 mg PO DAILY RF: 0 ferrous sulfate 220 mg (44 mg iron)/5 mL elixir 220 mg PO DAILY RF: 0 Lactobacillus acidophilus [Acidophilus] Capsule 100 mg PO DAILY RF: 0 modafinil 100 mg tablet 50 mg PO DAILY PRNRF: 0 Trelegy Ellipta 100-62.5-25 mcg blister with device 1 inh INHALATION QAM RF: 0 ropinirole 1 mg tablet 2 mg PO TID RF: 0 Discontinued Eliquis 5 mg tablet 5 mg PO BID RF: 0 bisacodyl [Dulcolax (bisacodyl)] 5 mg tablet,delayed release (DR/EC) 5 mg PO ONCE Qty: 4 RF: 0 polyethylene glycol 3350 17 gram/dose powder 17 g PO ONCE Qty: 238 RF: 0 Discharge Instructions Additional Instructions: DSU Colonoscopy Post- Op Instructions Instructions for Everyone who is given Anesthesia: For your safety, please do the following for the next twenty-four (24) hours: *Do Not operate a motor vehicle (car, truck, motorcycle, etc.) *Do Not drink alcoholic beverages or use any recreational drugs for the first 24 hours or while taking pain medications. The medications in your body may have a reaction that can be dangerous. *Do Not make any important decisions or sign any important papers. Findings:mild reflux small polyp -Both scopes are essentially normal. -Do not resume Elliquis Follow up: 02/13 14:30 w/ Dr. Doty 1. No lifting over 20 pounds or strenuous activity for the first 24 hours after your procedure. After 24 hours there are no restrictions on your activity but you may feel fatigued for a few days. 2. After you arrive home you may have a light meal and return to your normal diet as you can tolerate it without feeling sick to your stomach. 3. You may have a bloated, gaseous feeling in your belly (abdomen) after a colonoscopy. Passing gas and belching will help. Walking or lying down on your left side with your knees flexed may relieve the discomfort. Call the office at [phone] (Office) or [phone] (Hospital) right away if you notice any of the following: a.Vomiting of blood or ?coffee ground stools?. b.Rectal bleeding 1Tbsp, blood clots or continuous bleeding. c.Severe belly (abdominal) pain. d.A hard distended belly (abdomen) and an inability to pass gas. 4. Please don?t expect to have a normal BM (bowel movement) for 2-3 days after your procedure. 5. If there are questions regarding the findings of your procedure, please contact your doctor 6. If you are unable to contact your doctor with a problem, contact the hospital at [phone]. 7. Continue all your regular medications unless directed otherwise. I understand the above instructions and have no questions. Signature of Patient or Adult Escort Name of Responsible Adult Escort Signature of Nurse Date/Time Activity:: see above Diet:: Small light meals x24 hours Discharge Orders Discharge Orders: Discharge Order (Routine); Ordered 02/06/21 Ordered By: Anabel Doty DS: Diagnosis Discharge Diagnosis (1) Iron deficiency anemia due to chronic blood loss: Status: Acute (2) Chronic GERD: Status: Acute
[2021-02-07] MEDS: IRON SUCROSE COMPLEX 200 MG in Normal Saline 100 ML 440 MG IVPB (14:05)
[2021-02-07 14:53] LABS: Abs Immature Grans 0.03 10^3/uL (0.0-0.06); Absolute Basophil Count 0.01 10^3/uL (0.0-0.2); Absolute Eosinophil Count 0.15 10^3/uL (0.0-0.7); Absolute Lymphocyte Count 0.89 10^3/uL (1.2-3.4); Absolute Monocyte Count 0.34 10^3/uL (0.1-0.8); Absolute Neutrophil Count 3.99 10^3/uL (1.2-6.7); Basophils % 0.2; Eosinophils % 2.8; HCT 30.5 % (36.0-46.0); HGB 9.7 g/dL (11.2-15.7); Immature Grans % 0.6; Lymphocytes % 16.5; MCHC 31.8 % (32.0-36.0); MCV 88.2 fL (80-95); MPV 8.4 fL (8.0-11.0); Monocytes % 6.3; Neutrophils % 73.6; Nucleated RBC 0 %; Platelet Count 334 10^3/uL (130-400); RBC 3.46 10^6/uL (3.93-5.22); RDW 16.7 % (11.7-14.6); RDW-SD 53.8 fL; WBC 5.41 10^3/uL (4.4-10.8)
--- NOTE | 2021-02-07 15:16 | W.COLOREPORT ---
Date of service: 02/07/21 Time of Service: 15:17 Colonoscopy Report Date of procedure: 02/07/21 Pre-op diagnosis general: anemia/polyps Post-op diagnosis procedure note: same Surgeon: Anabel Doty Anesthesia Type: General LMA/ETT Estimated blood loss (mL): 1 Pathology: other Complications: None Disposition: PACU Prep: Miralax/Dulcolax Retraction Time: 12 Procedure Description: After informed consent was obtained the patient was taken to the procedure room and placed in a left decubitous position. Monitors were applied and a time out was done. The patients name, date of , procedure, allergies to medications and metal in their body was reviewed. The patient was then sedated. Once sedated and comfortable a rectal exam was done. External exam was normal. Internal exam revealed a normal sphincter tone and no palpable masses. The scope was then introduced and retrofelexed. no internal hemorrhoids were identified. The scope was then advanced to the cecum w/out difficulty. The TI and appendiceal orifice were identified. The prep was good. The scope was then slowly retracted over 12 mins minutes back into the rectum. Polyps were removed at 50cm w/ a hot bx forcept.. She has had a prior LAR of the sigmoid colon and 15cm of colon removed/the colon is for-shortened. The anastomosis of the sigmoid at about 5-10cm, it is widely patent. There are no diveritcula. The previous polypectomy site tattoo was noted approx 70cm. There is no sign of recurrence of the Villous. There is another polyp at 50cm. This is removed w/ a hot bx forcept. The scope was removed and the patient was woken up and taken back to Same day surgery in stable condition. The patient tolerated the procedure well and there were no immediate complications. Follow up: The patient should follow up in 3 years unless they develop changes in bowel habits or other new gastrointestinal complaints. pt will f/u saturday to review anemia. The scpes today do not explain pt degree of anemia
--- NOTE | 2021-02-07 21:12 | W.PM.ENDDOP ---
Date of service: 02/07/21 Time of Service: 21:12 Endoscopy Report DATE OF PROCEDURE: 02/07/21 PRE-OP DIAGNOSIS: anemia/gerd POST-OP DIAGNOSIS: same SURGEON: Anabel Doty ANESTHESIA TYPE: General LMA/ETT ESTIMATED BLOOD LOSS: 1 PATHOLOGY: other COMPLICATIONS: None DISPOSITION: same day PROCEDURE DESCRIPTION: After informed consent was obtained the patient was take to the procedure room and placed in a supine position. Monitors were applied and a time out was done. The patients name, date of , procedure type, allergies to medications and metal in their body was reviewed. A bite block was placed and the patient was sedated. Once sedated and comfortable the gastroscope was advanced through the oropharynx which was grossly normal into the esophagus. The proximal and mid-esophagus were nl. In the distal esophagus there was no eosphageal varices/diverticula or The scope was advanced into the stomach and through the pylorus into the 3rd portion of the duodenum. The duodenum was noted to be nl. Biopsies were done . The scope was retracted back into the stomach and biopsies were done to rule out H. pylori. There were no ulcers. There is may be some mild gastritis in a striped fashion radiating from the antrum. Biopsies are taken. All specimens are retrieved and no bleeding is noted. The scope was retroflexed. The cardia and fundus were noted to be normal. There minute sliding type hiatal hernia noted. The scope was retracted back into the esophagus and biopsies were done of the GE junction to rule out Gil's. The Z line was irregular. The GE junction was at 36 cm. The scope was removed and the patient was woken up and taken back to [facility] in stable condition. Follow up: Follow-up in the clinic with myself on Saturday. Again these findings are minor and do not explain her degree of anemia. Patient did receive IV iron today.
== END 2021-02-07 15:40 | disposition home or self-care (01) ==
PROVIDERS: PCP Nurse Practitioner Family; Visit Provider Surgery
PROC: (CPT 45384; principal; 2021-02-07 11:45)
DX: D50.0 Iron deficiency anemia secondary to blood loss (chronic) (principal); K63.5 Polyp of colon; K21.9 Gastro-esophageal reflux disease without esophagitis; K31.7 Polyp of stomach and duodenum; K29.80 Duodenitis without bleeding; I10 Essential (primary) hypertension; E11.9 Type 2 diabetes mellitus without complications; I48.91 Unspecified atrial fibrillation; Z85.038 Personal history of other malignant neoplasm of large intestine; Z86.010 Personal history of colon polyps
CPT/HCPCS: 45384; 43239; 85027; 88305; 96365; 85025; J1756; J2001

== ENCOUNTER 2021-02-14 13:49 | Outpatient (REF) | payer OTHER, SELFPAY ==
[2021-02-14 13:59] LABS: Abs Immature Grans 0.02 10^3/uL (0.0-0.06); Absolute Basophil Count 0.03 10^3/uL (0.0-0.2); Absolute Eosinophil Count 0.19 10^3/uL (0.0-0.7); Absolute Lymphocyte Count 0.97 10^3/uL (1.2-3.4); Absolute Monocyte Count 0.43 10^3/uL (0.1-0.8); Absolute Neutrophil Count 4.37 10^3/uL (1.2-6.7); Basophils % 0.5; Eosinophils % 3.2; HGB 9.5 g/dL (11.2-15.7); Immature Grans % 0.3; Lymphocytes % 16.1; MCH 27.9 pg (27.0-33.0); MCHC 31.7 % (32.0-36.0); MPV 9.1 fL (8.0-11.0); Monocytes % 7.2; Neutrophils % 72.7; Nucleated RBC 0 %; Platelet Count 314 10^3/uL (130-400); RBC 3.41 10^6/uL (3.93-5.22); RDW 16.6 % (11.7-14.6); RDW-SD 52.3 fL; WBC 6.01 10^3/uL (4.4-10.8)
[2021-02-14 14:21] LABS: ALT 25 U/L (14-59); AST 18 U/L (15-37); Albumin 3.7 g/dL (3.4-5.0); Alkaline Phosphatase 149 U/L (46-116); Anion Gap 9.8 mmol/L (3-11); BUN 26 mg/dL (7-18); Bilirubin, Total 0.2 mg/dL (0.2-1.0); CO2 26.2 mmol/L (21.0-32.0); CREATININE 0.9 mg/dL (0.55-1.02); Calcium 8.4 mg/dL (8.5-10.1); Chloride 104 mmol/L (98-107); Ferritin 174 ng/mL (8-252); Glucose 147 mg/dL (74-106); Potassium 4.1 mmol/L (3.5-5.1); Sodium 140 mmol/L (136-145); Total Protein 6.5 g/dL (6.4-8.2)
[2021-02-14 14:29] LABS: Iron 30 ug/dL (50-170); Total Iron Binding Capacity 325 ug/dL (250-450); Transferrin Sat 9 % (15-50)
== END 2021-02-14 13:50 | disposition home or self-care (01) ==
LOC: NCHCN 13:49
PROVIDERS: Surgery; PCP Nurse Practitioner Family; Visit Provider Nurse Practitioner Family
DX: D64.9 Anemia, unspecified (principal)
CPT/HCPCS: 80053; 82728; 83540; 83550; 83735; 85025

== ENCOUNTER → 2021-02-16 14:31 | Outpatient (BNVA) | payer OTHER, SELFPAY | PROVIDERS: PCP Nurse Practitioner Family; Referring Provider Nurse Practitioner Family; Visit Provider Surgery | DX: Z48.815 Encounter for surgical aftercare following surgery on the digestive system (principal); D64.9 Anemia, unspecified | CPT/HCPCS: 99215 ==

== ENCOUNTER 2021-03-03 04:41 | Outpatient (RCR) | payer OTHER, SELFPAY ==
[2021-03-03] MEDS: Normal Saline Flush 10 ML SYR IVP (13:00)
[2021-03-03] MEDS: IRON SUCROSE COMPLEX 300 MG in Normal Saline 250 ML 176.667 MG IVPB (13:14)
== END 2021-03-06 23:59 | disposition home or self-care (01) ==
LOC: INF 04:41
PROVIDERS: PCP Nurse Practitioner Family; Visit Provider Internal Medicine
DX: D64.9 Anemia, unspecified (principal)
CPT/HCPCS: 96365; 96366; J1756

== ENCOUNTER 2021-03-13 14:24 | Outpatient (REF) | payer OTHER, SELFPAY | END 2021-03-13 14:25 | disposition home or self-care (01) | LOC: NCHCN 14:24 | PROVIDERS: PCP Nurse Practitioner Family; Visit Provider Nurse Practitioner Family | DX: R30.0 Dysuria (principal) | CPT/HCPCS: 87077; 87086; 87186 ==

== ENCOUNTER 2021-03-20 02:17 | Outpatient (RCR) | payer OTHER, SELFPAY ==
[2021-03-10] MEDS: Normal Saline Flush 10 ML SYR IVP (13:00)
[2021-03-10] MEDS: IRON SUCROSE COMPLEX 300 MG in Normal Saline 250 ML 176.667 MG IVPB (13:04)
[2021-03-17] MEDS: IRON SUCROSE COMPLEX 300 MG in Normal Saline 250 ML 176.667 MG IVPB (13:26)
[2021-03-17] MEDS: Normal Saline Flush 10 ML SYR IVP (13:26)
[2021-03-20 10:59] LABS: HCT 35.5 % (36.0-46.0); HGB 11.5 g/dL (11.2-15.7); MCH 28.4 pg (27.0-33.0); MCHC 32.4 % (32.0-36.0); MCV 87.7 fL (80-95); MPV 8.4 fL (8.0-11.0); Platelet Count 313 10^3/uL (130-400); RBC 4.05 10^6/uL (3.93-5.22); RDW-SD 47.9 fL; WBC 7.47 10^3/uL (4.4-10.8)
[2021-03-20 11:29] LABS: Ferritin 771 ng/mL (8-252); Iron 68 ug/dL (50-170); Total Iron Binding Capacity 281 ug/dL (250-450); Transferrin Sat 24 % (15-50)
== END 2021-04-05 23:59 | disposition home or self-care (01) ==
LOC: INF 02:17
PROVIDERS: Surgery; PCP Nurse Practitioner Family; Visit Provider Internal Medicine
DX: D64.9 Anemia, unspecified (principal)
CPT/HCPCS: 36415; 85027; 96365; 96366; 82728; 83540; 83550; J1756

== ENCOUNTER 2021-03-20 12:42 | Outpatient (REF) | payer OTHER, SELFPAY | END 2021-03-20 12:43 | disposition home or self-care (01) | LOC: NCHCN 12:42 | PROVIDERS: PCP Nurse Practitioner Family; Visit Provider Nurse Practitioner Family | DX: R30.0 Dysuria (principal) | CPT/HCPCS: 80373; 87077; 87086; 87186 ==

== ENCOUNTER 2021-04-03 03:49 | Outpatient (CLI) | payer OTHER, SELFPAY ==
[2021-04-03 09:20] LABS: Abs Immature Grans 0.01 10^3/uL (0.0-0.06); Absolute Basophil Count 0.02 10^3/uL (0.0-0.2); Absolute Eosinophil Count 0.21 10^3/uL (0.0-0.7); Absolute Monocyte Count 0.35 10^3/uL (0.1-0.8); Absolute Neutrophil Count 3.01 10^3/uL (1.2-6.7); Basophils % 0.4; Eosinophils % 4.4; HCT 36.8 % (36.0-46.0); HGB 11.8 g/dL (11.2-15.7); Immature Grans % 0.2; MCH 27.9 pg (27.0-33.0); MCHC 32.1 % (32.0-36.0); MPV 7.9 fL (8.0-11.0); Monocytes % 7.3; Neutrophils % 62.7; Nucleated RBC 0 %; Platelet Count 257 10^3/uL (130-400); RBC 4.23 10^6/uL (3.93-5.22); RDW 15.2 % (11.7-14.6); RDW-SD 48.6 fL
[2021-04-03 09:30] LABS: C-Reactive Protein 0.51 mg/dL (0.0-0.3)
[2021-04-03 09:46] LABS: Iron 59 ug/dL (50-170); Total Iron Binding Capacity 264 ug/dL (250-450); Transferrin Sat 22 % (15-50)
== END 2021-04-03 03:50 | disposition home or self-care (01) ==
LOC: LBO 03:50
PROVIDERS: PCP Nurse Practitioner Family; Visit Provider Surgery
DX: Z48.815 Encounter for surgical aftercare following surgery on the digestive system (principal); K29.70 Gastritis, unspecified, without bleeding; D50.8 Other iron deficiency anemias; K52.831 Collagenous colitis; D12.2 Benign neoplasm of ascending colon; M35.3 Polymyalgia rheumatica; G62.9 Polyneuropathy, unspecified; I10 Essential (primary) hypertension; E11.9 Type 2 diabetes mellitus without complications; I48.91 Unspecified atrial fibrillation; R19.7 Diarrhea, unspecified; K21.9 Gastro-esophageal reflux disease without esophagitis
CPT/HCPCS: 36415; 99213; 83540; 83550; 85025; 86140

== ENCOUNTER 2021-05-04 04:24 | Outpatient (CLI) | payer OTHER, SELFPAY ==
[2021-05-04 08:51] LABS: Abs Immature Grans 0.01 10^3/uL (0.0-0.06); Absolute Basophil Count 0.02 10^3/uL (0.0-0.2); Absolute Lymphocyte Count 1.22 10^3/uL (1.2-3.4); Absolute Monocyte Count 0.36 10^3/uL (0.1-0.8); Basophils % 0.4; Eosinophils % 3.5; HCT 35.9 % (36.0-46.0); HGB 11.7 g/dL (11.2-15.7); Immature Grans % 0.2; Lymphocytes % 21.4; MCH 28.2 pg (27.0-33.0); MCHC 32.6 % (32.0-36.0); MCV 86.5 fL (80-95); Monocytes % 6.3; Neutrophils % 68.2; Nucleated RBC 0 %; Platelet Count 273 10^3/uL (130-400); RBC 4.15 10^6/uL (3.93-5.22); RDW 15.1 % (11.7-14.6); RDW-SD 48.7 fL; WBC 5.71 10^3/uL (4.4-10.8)
[2021-05-04 09:51] LABS: Iron 68 ug/dL (50-170); Total Iron Binding Capacity 276 ug/dL (250-450); Transferrin Sat 25 % (15-50)
== END 2021-05-04 04:25 | disposition home or self-care (01) ==
LOC: LBO 04:24
PROVIDERS: PCP Nurse Practitioner Family; Visit Provider Surgery
DX: D50.8 Other iron deficiency anemias (principal); K21.9 Gastro-esophageal reflux disease without esophagitis; C18.9 Malignant neoplasm of colon, unspecified; D12.2 Benign neoplasm of ascending colon; I48.91 Unspecified atrial fibrillation
CPT/HCPCS: 36415; 83540; 83550; 85025

== ENCOUNTER 2021-07-04 13:43 | Outpatient (REF) | payer OTHER, SELFPAY ==
[2021-07-04 14:25] LABS: Abs Immature Grans 0.03 10^3/uL (0.0-0.06); Absolute Basophil Count 0.04 10^3/uL (0.0-0.2); Absolute Eosinophil Count 0.22 10^3/uL (0.0-0.7); Absolute Lymphocyte Count 1.54 10^3/uL (1.2-3.4); Absolute Monocyte Count 0.47 10^3/uL (0.1-0.8); Absolute Neutrophil Count 4.61 10^3/uL (1.2-6.7); Basophils % 0.6; Eosinophils % 3.2; HGB 12.8 g/dL (11.2-15.7); Immature Grans % 0.4; Lymphocytes % 22.3; MCH 29.3 pg (27.0-33.0); MCHC 32.8 % (32.0-36.0); MCV 89.2 fL (80-95); MPV 8.9 fL (8.0-11.0); Monocytes % 6.8; Neutrophils % 66.7; Nucleated RBC 0 %; Platelet Count 361 10^3/uL (130-400); RBC 4.37 10^6/uL (3.93-5.22); RDW 13.4 % (11.7-14.6); RDW-SD 43.8 fL; WBC 6.91 10^3/uL (4.4-10.8)
[2021-07-04 14:31] LABS: Iron 67 ug/dL (50-170); Total Iron Binding Capacity 316 ug/dL (250-450); Transferrin Sat 21 % (15-50)
[2021-07-04 14:47] LABS: Anion Gap 9.5 mmol/L (3-11); BUN 24 mg/dL (7-18); CO2 28.5 mmol/L (21.0-32.0); CREATININE 1.2 mg/dL (0.55-1.02); Calcium 9.3 mg/dL (8.5-10.1); Chloride 101 mmol/L (98-107); Estimated GFR 43.12 (mL/min/1.73m2); Ferritin 250 ng/mL (8-252); Glucose 140 mg/dL (74-106); Magnesium 1.9 mg/dL (1.8-2.4); Potassium 4.2 mmol/L (3.5-5.1); Sodium 139 mmol/L (136-145)
== END 2021-07-04 13:44 | disposition home or self-care (01) ==
LOC: NCHCN 13:43
PROVIDERS: PCP Nurse Practitioner Family; Visit Provider Nurse Practitioner Family
DX: E78.5 Hyperlipidemia, unspecified (principal); E11.9 Type 2 diabetes mellitus without complications; I10 Essential (primary) hypertension; I48.91 Unspecified atrial fibrillation; E83.42 Hypomagnesemia; D64.9 Anemia, unspecified
CPT/HCPCS: 80048; 82728; 83540; 83550; 83735; 85025

== ENCOUNTER 2021-10-12 10:24 | Outpatient (REF) | payer MEDICARE, SELFPAY ==
[2021-10-12 15:29] LABS: Abs Immature Grans 0.02 10^3/uL (0.0-0.06); Absolute Basophil Count 0.03 10^3/uL (0.0-0.2); Absolute Eosinophil Count 0.22 10^3/uL (0.0-0.7); Absolute Lymphocyte Count 1.31 10^3/uL (1.2-3.4); Absolute Monocyte Count 0.36 10^3/uL (0.1-0.8); Basophils % 0.5; Eosinophils % 3.6; HCT 34.6 % (36.0-46.0); HGB 11.2 g/dL (11.2-15.7); Immature Grans % 0.3; Lymphocytes % 21.3; MCH 26.5 pg (27.0-33.0); MCHC 32.4 % (32.0-36.0); MCV 81.8 fL (80-95); MPV 9.6 fL (8.0-11.0); Monocytes % 5.9; Neutrophils % 68.4; Nucleated RBC 0 %; Platelet Count 346 10^3/uL (130-400); RBC 4.23 10^6/uL (3.93-5.22); RDW 13.5 % (11.7-14.6); RDW-SD 40.2 fL; WBC 6.14 10^3/uL (4.4-10.8)
[2021-10-12 15:56] LABS: Iron 33 ug/dL (50-170); Total Iron Binding Capacity 383 ug/dL (250-450); Transferrin Sat 9 % (15-50)
[2021-10-12 16:09] LABS: Ferritin 26 ng/mL (8-252)
== END 2021-10-12 10:25 | disposition home or self-care (01) ==
LOC: NCHCN 10:24
PROVIDERS: PCP Nurse Practitioner Family; Visit Provider Nurse Practitioner Family
DX: D64.9 Anemia, unspecified (principal); K21.9 Gastro-esophageal reflux disease without esophagitis; I48.91 Unspecified atrial fibrillation; M35.3 Polymyalgia rheumatica; K52.832 Lymphocytic colitis
CPT/HCPCS: 82728; 83540; 83550; 85025

== ENCOUNTER 2021-10-30 14:03 | Outpatient (REF) | payer MEDICARE, SELFPAY ==
[2021-10-30 15:38] LABS: Anion Gap 10.9 mmol/L (3-11); BUN 22 mg/dL (7-18); CO2 26.1 mmol/L (21.0-32.0); Chloride 100 mmol/L (98-107); Estimated GFR 53.21 (mL/min/1.73m2); Glucose 129 mg/dL (74-106); Potassium 4.2 mmol/L (3.5-5.1); Sodium 137 mmol/L (136-145)
== END 2021-10-30 14:04 | disposition home or self-care (01) ==
LOC: NCHCN 14:03
PROVIDERS: PCP Nurse Practitioner Family; Visit Provider Nurse Practitioner Family
DX: K52.832 Lymphocytic colitis (principal)
CPT/HCPCS: 80048

== ENCOUNTER → 2021-11-13 13:08 | Outpatient (BNVA) | payer MEDICARE, SELFPAY | PROVIDERS: PCP Nurse Practitioner Family; Referring Provider Nurse Practitioner Family; Visit Provider Psychiatry & Neurology Neurology | DX: R41.3 Other amnesia (principal); G25.81 Restless legs syndrome; G62.9 Polyneuropathy, unspecified; I10 Essential (primary) hypertension; J44.9 Chronic obstructive pulmonary disease, unspecified; E11.9 Type 2 diabetes mellitus without complications | CPT/HCPCS: 99214 ==

== ENCOUNTER 2021-12-14 01:17 | Outpatient (CLI) | payer MEDICARE, SELFPAY ==
--- NOTE | 2021-12-14 07:30 | DI.RAD_ITS ---
Exam(s) XR CHEST 2V PA LATERAL EXAM: XR CHEST 2V PA LATERAL CLINICAL HISTORY: concern for pneumonia vs bronchitis,cough, r05.9 TECHNIQUE: COMPARISON: CR CHEST 2 VIEWS PA,LAT from 11/03/2017 FINDINGS: The heart is at the upper limits of normal in size. There appear to be mild fibrotic changes of both lungs. No focal consolidation. No pleural effusion. Little interval change appearance comparison examination of October 2017. IMPRESSION: No evidence of acute process. RADIATION DOSE DELIVERED: Total DLP
--- NOTE | 2021-12-24 16:30 | NUR.NOTE ---
Nursing Note: Accessed patient record for the advanced directives per Dr Daniel Morin. Estefany Cunningham
--- NOTE | 2021-12-24 16:35 | W.ED.FU ---
Follow Up Plan: I received call from EMS who were in the field performing CPR for asystolic cardiac arrest. I accessed the patient's chart as family who were present did not have access to her advanced directive. I was able to review her advance directive from 11/04/2018 that clearly states she does not want CPR done to try to restart her heart if her heart were to stop. I notified the patient's who was in agreement and noted that he thought she had an advance directive stating such and notified EMS.
== END 2021-12-14 01:37 ==
PROVIDERS: PCP Nurse Practitioner Family; Visit Provider Student in an Organized Health Care Education/Training Program
DX: R05.8 Other specified cough (principal)
CPT/HCPCS: 71046

== ENCOUNTER → 2021-12-25 08:14 | Outpatient (BNVA) | payer MEDICARE, SELFPAY | PROVIDERS: PCP Nurse Practitioner Family; Referring Provider Nurse Practitioner Family; Visit Provider Psychiatry & Neurology Neurology | DX: R69 Illness, unspecified (principal) ==